=== PATIENT | male | born 1965 | race Caucasian/White ===

== ENCOUNTER → 2020-01-21 16:12 | Outpatient (BNVA) | payer BC, SELFPAY | PROVIDERS: PCP Internal Medicine; Referring Provider Internal Medicine; Visit Provider Nurse Practitioner Family | DX: Z12.11 Encounter for screening for malignant neoplasm of colon (principal); Z79.899 Other long term (current) drug therapy; Z90.49 Acquired absence of other specified parts of digestive tract ==

== ENCOUNTER 2020-02-10 06:22 | Day surgery (SDC) | payer BC, SELFPAY ==
--- NOTE | 2020-02-09 10:23 | HO.ANESPROP2 ---
Documented by User: Briana Rivero 02/09/20 10:24 HPI - Anesthesia Eval Consult details Narrative: 54yo M for Colonoscopy [facility] Past Medical History Medical History (Updated 02/09/20 @ 10:24 by Briana Rivero) RICKY on CPAP Family History Family History (Updated 01/21/20 @ 16:16 by Kirsty Dumont MA) Father Family hx of colon cancer Mother Alive and well Surgical History Surgical History (Updated 01/21/20 @ 16:33 by Rosa M White [facility]) History of thumb surgery S/P rhinoplasty Social History Social History (Updated 01/21/20 @ 16:16 by Kirsty Dumont MA) Alcohol intake: current Alcohol intake frequency: holidays/special occasions only Smoking Status: Never smoker Second Hand Smoke Exposure: No Use of substances other than those prescribed or required for medical reasons: No Advance Directives: No Advance Directives Information Provided: No Advance Directives on File: No Meds Allergies Allergy/AdvReac Type Severity Reaction Status Date / Time sertraline AdvReac Unknown FOGGY Verified 09/15/19 00:00 FEELING dust Allergy Unknown Unknown Uncoded 02/10/20 06:42 hayfever Allergy Unknown Unknown Uncoded 02/10/20 06:42 Home Medications Medication Instructions Recorded Confirmed Type cetirizine 10 mg capsule 10 mg PO DAILY 01/21/20 01/21/20 History fexofenadine 60 mg tablet 60 mg PO DAILY tab 01/21/20 01/21/20 History montelukast 10 mg tablet 10 mg PO DAILY 01/21/20 01/21/20 History Exam Exam Date and Time: February 09, 2020 1023 Assessment and Plan Assessment Anesthesia Assessment: Chart Reviewed Documented by User: Jarett Hanley 02/10/20 07:35 [facility] Past Medical History Medical History (Updated 02/09/20 @ 10:24 by Briana Rivero) RICKY on CPAP Family History Family History (Updated 01/21/20 @ 16:16 by Kirsty Dumont MA) Father Family hx of colon cancer Mother Alive and well Surgical History Surgical History (Updated 01/21/20 @ 16:33 by BENTLEY Evans) History of thumb surgery S/P rhinoplasty Social History Social History (Updated 01/21/20 @ 16:16 by Kirsty Dumont MA) Alcohol intake: current Alcohol intake frequency: holidays/special occasions only Smoking Status: Never smoker Second Hand Smoke Exposure: No Use of substances other than those prescribed or required for medical reasons: No Advance Directives: No Advance Directives Information Provided: No Advance Directives on File: No Meds Allergies Allergy/AdvReac Type Severity Reaction Status Date / Time sertraline AdvReac Unknown FOGGY Verified 09/15/19 00:00 FEELING dust Allergy Unknown Unknown Uncoded 02/10/20 06:42 hayfever Allergy Unknown Unknown Uncoded 02/10/20 06:42 Home Medications Medication Instructions Recorded Confirmed Type cetirizine 10 mg capsule 10 mg PO DAILY 01/21/20 01/21/20 History fexofenadine 60 mg tablet 60 mg PO DAILY tab 01/21/20 01/21/20 History montelukast 10 mg tablet 10 mg PO DAILY 01/21/20 01/21/20 History Exam Airway Mallampati Class: III (Limited mouth opening) TM Dist: >3cm Neck ROM: Full Heart: RRR Assessment and Plan Final Anesthetic Review NPO: Yes ASA Class: II Final Preanesthetic Review: Consent Obtained/Reviewed Anesthetic Plan Anesthetic Plan: MAC: Disposition: Standard PACU
[2020-02-09 11:50] VITALS: BMI 32.9
[2020-02-10 07:04] VITALS: BP 137/79; PULSE 72; RESP 16; TEMP 36.3; O2SAT 97
[2020-02-10] MEDS: Lactated Ringers 1,000 ML 100 ML IVCONT (07:12)
--- NOTE | 2020-02-10 07:39 | MHC.SHP ---
Pre-Procedural Eval Section B Chief Complaint: Screening Details of Present Illness: Colon cancer screening--+ hx in Father Relevant Family History (Specify if Yes): Yes Relevant Social History: None Present Medications: see Short Stay Collaborative assessment Medical History: Significant History (Obesity, RICKY, Seasonal allergies) History of Previous Operations: No relevant previous surgery Allergies: Allergies Allergy/AdvReac Type Severity Reaction Status Date / Time sertraline AdvReac Unknown FOGGY Verified 09/15/19 00:00 FEELING dust Allergy Unknown Unknown Uncoded 02/10/20 06:42 hayfever Allergy Unknown Unknown Uncoded 02/10/20 06:42 Review of Systems Sugical H&P ROS: Negative: Constitution, Cardiovascular, Respiratory and Gastrointestinal Exam Surgical H&P Exam: Normal: HEENT, Normal: Heart, Normal: Lungs and Normal: Extremities Plan Diagnosis/Plan: Unchanged Patient has been examined and remains a candidate for the planned procedure--Yes
[2020-02-10 08:07] VITALS: BP 120/79; PULSE 76; RESP 18; TEMP 36; O2SAT 94
--- NOTE | 2020-02-10 08:08 | PM.PROC ---
Brief Operative Note Date of procedure: 02/10/20 Pre-op diagnosis: Colon cancer screening + family hx Post-op diagnosis: other (Normal exam) Procedure: Colonoscopy Anesthesia: MAC (md Talon) Surgeon: Ethel Lopez Estimated blood loss (mL): 0 Pathology: none sent Condition: stable Disposition: PACU
[2020-02-10 08:22] VITALS: BP 120/83; PULSE 66; RESP 13; O2SAT 95
[2020-02-10] MEDS: Acetaminophen 325 MG TABLET 650 MG PO (08:27)
--- NOTE | 2020-02-10 08:52 | HO.POSTANES ---
Post Anesthesia Evaluation Post Anesthesia Evaluation Vital Signs: Vital Signs Temp Pulse Resp BP Pulse Ox 02/10/20 08:22 96.8 F 66 13 120/83 95 02/10/20 08:07 96.8 F 76 18 120/79 94 02/10/20 07:04 97.3 F 72 16 137/79 97 Anesthesia: Monitored Mental Status: Awake Pain Control: Satisfactory Nausea/Vomiting: None Hydration: Adequate Anesthesia-Related Issues: No Anes. Related Issues
--- NOTE | 2020-02-10 09:35 | OP_ITS ---
SURGEON: Ethel Lopez MD PREOPERATIVE DIAGNOSIS: Colon Cancer Screening POSTOPERATIVE DIAGNOSIS: Normal exam. PROCEDURE PERFORMED: Colonoscopy. ESTIMATED BLOOD LOSS: No blood loss. COMPLICATIONS: Minor epistaxis through the nasal trumpet placement. ANESTHESIA: Monitored. ANESTHESIOLOGIST: Jarett Hanley MD ASSISTANTS: No certified nursing assistant instructor. SPECIMENS: No specimens. PREOPERATIVE DIAGNOSES: The patient's first colon cancer screening, high risk, father with history of colorectal cancer greater than age 80. 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 Lopez. CONDITION: Postop, stable. FINDINGS: Digital rectal exam revealed prostate to be slightly asymmetrical and enlarged with right lobe more prominent. No nodularity appreciated. Video colonoscope was introduced without difficulty. It was navigated into the rectosigmoid, sigmoid and up through the descending, transverse, ascending colon down into the cecum. Appendiceal orifice was seen. Ileocecal valve was seen. Prep was excellent. Slow rotational views on withdrawing the scope. Good submucosal detail: noted AVM in the ascending colon, nonbleeding, less than 5 mm in size. Anorectal verge was clear. PLAN AND CURRENT RECOMMENDATIONS: Repeat asymptomatic screening in this patient with family history is 5 years. . GRAFT OR IMPLANTS: No grafts or implants. Ethel Lopez MD MEN/MODL / [id number] MTDD
== END 2020-02-10 09:00 | disposition home or self-care (01) ==
PROVIDERS: PCP Internal Medicine; Visit Provider Internal Medicine Gastroenterology
PROC: 0DJD8ZZ Inspection of Lower Intestinal Tract, Via Natural or Artificial Opening Endoscopic (ICD-10-PCS; CPT 45378; principal; 2020-02-10 07:30)
DX: Z12.11 Encounter for screening for malignant neoplasm of colon (principal); Z80.0 Family history of malignant neoplasm of digestive organs; K55.20 Angiodysplasia of colon without hemorrhage; E66.9 Obesity, unspecified; J30.2 Other seasonal allergic rhinitis; G47.33 Obstructive sleep apnea (adult) (pediatric); Z99.89 Dependence on other enabling machines and devices; Z79.899 Other long term (current) drug therapy; Z88.8 Allergy status to other drugs, medicaments and biological substances
CPT/HCPCS: 45378

== ENCOUNTER → 2020-03-03 13:40 | Outpatient (BNVA) | payer BC, SELFPAY | PROVIDERS: PCP Internal Medicine; Referring Provider Internal Medicine; Visit Provider Nurse Practitioner | DX: Z76.89 Persons encountering health services in other specified circumstances (principal) ==

== ENCOUNTER 2020-09-08 12:28 | Outpatient (REF) | payer BC, SELFPAY ==
[2020-09-08 14:00] LABS: MANUAL DIFF FLAG NO
[2020-09-08 14:08] LABS: Basophils Absolute Auto 0.1 X10*3/uL (0.0-0.2); Basophils Percent Auto 0.7 % (0-2); Eosinophils Absolute Auto 0.2 X10*3/uL (0.0-0.4); Eosinophils Percent Auto 2.1 % (0-4); Hematocrit 43.6 % (42-52); Hemoglobin 15.2 g/dl (14.0-18.0); Imm Gran Abs Auto 0.02 X10*3/uL (0.00-0.03); Imm Gran Pct Auto 0.2 % (0.0-0.4); Lymphocytes Absolute Auto 1.6 X10*3/uL (1.2-4.9); Lymphocytes Percent Auto 18.6 % (20-40); Mean Corpuscular HGB Conc 34.9 g/dl (31.0-36.0); Mean Corpuscular Hemoglobin 30.9 pg (27.0-33.0); Mean Corpuscular Volume 88.6 fL (80-98); Mean Platelet Volume 11.7 fL (9.4-12.4); Monocytes Absolute Auto 0.5 X10*3/uL (0.1-1.2); Monocytes Percent Auto 5.3 % (2-11); Neutrophils Absolute Auto 6.3 X10*3/uL (2.0-8.3); Neutrophils Percent Auto 73.1 % (45-73); Platelet Count 128 X10*3/uL (160-400); Red Blood Count 4.92 X10*6/uL (4.60-5.80); White Blood Count 8.6 X10*3/uL (4.8-10.8)
[2020-09-08 14:25] LABS: Alanine Aminotransferase 22 U/L (0-40); Albumin Level 4.3 g/dL (3.5-5.0); Alkaline Phosphatase 54 U/L (39-117); Anion Gap 13 (12-20); Aspartate Amino Transferase 21 U/L (5-37); Bilirubin Total 0.7 mg/dL (0.0-1.0); Blood Urea Nitrogen 17 mg/dL (9-16); Calcium 9.5 mg/dL (8.4-10.2); Carbon Dioxide 25 mmol/L (22-29); Chloride 107 mmol/L (96-108); Estimated Glomerular Filt Rate > 60; Glucose Random 90 mg/dL (60-115); Potassium 4.1 mmol/L (3.3-5.1); Sodium 141 mmol/L (135-145); Total Protein 6.5 g/dL (6.5-8.0)
== END 2020-09-08 12:29 | disposition home or self-care (01) ==
LOC: HO.HMGCLDS 12:28
PROVIDERS: PCP Internal Medicine; Visit Provider Internal Medicine
DX: M25.511 Pain in right shoulder (principal); M25.512 Pain in left shoulder; M25.561 Pain in right knee; M25.562 Pain in left knee; R10.13 Epigastric pain; Z91.09 Other allergy status, other than to drugs and biological substances
CPT/HCPCS: 36415; 80053; 85025

== ENCOUNTER → 2020-09-20 13:33 | Outpatient (BNVA) | payer BC, SELFPAY | PROVIDERS: Visit Provider Orthopaedic Surgery | DX: M17.0 Bilateral primary osteoarthritis of knee (principal) | CPT/HCPCS: 20610; J1040 ==

== ENCOUNTER → 2020-10-04 10:48 | Outpatient (BNVA) | payer BC, SELFPAY | PROVIDERS: Visit Provider Orthopaedic Surgery | DX: M75.41 Impingement syndrome of right shoulder (principal); M75.42 Impingement syndrome of left shoulder | CPT/HCPCS: 20610; J1040 ==

== ENCOUNTER 2021-01-22 06:55 | Outpatient (REF) | payer BC, SELFPAY ==
[2021-01-22 12:14] LABS: Prostate Specific Antigen 0.57 ng/mL (<0.05-4.0)
[2021-01-22 12:16] LABS: Appearance Urine CLEAR; Color Urine YELLOW; Glucose Urine UA NEG (NEG); Leukocyte Esterase Urine NEG (NEG); Nitrite Urine NEG (NEG); Specific Gravity - Urine <= 1.005 (1.005-1.025); Urine Blood NEG (NEG); Urine Ketones NEG (NEG); Urine Protein NEG (NEG-TRACE)
== END 2021-01-22 06:56 | disposition home or self-care (01) ==
LOC: HO.HMGCLDS 06:55
PROVIDERS: PCP Internal Medicine; Visit Provider Internal Medicine
DX: R35.0 Frequency of micturition (principal)
CPT/HCPCS: 36415; 81003; 84153

== ENCOUNTER 2021-03-13 13:55 | Outpatient (REF) | payer BC, SELFPAY ==
--- NOTE | ~2021-03-13 | XR_ITS ---
EXAMINATION: XR SHOULDER, RIGHT XR SHOULDER, LEFT CLINICAL INFORMATION: Bilateral shoulder pain. COMPARISON: None TECHNIQUE: AP external rotation, Grashey, scapular Y, and axillary views of each shoulder. FINDINGS: RIGHT SHOULDER: There is a 1.8 x 0.3 x 0.2 cm calcification at the subscapularis tendon insertion, most consistent with calcific tendinitis. Soft tissues are otherwise unremarkable. Mild glenohumeral osteoarthritis is characterized by marginal osteophytes. There is mild associated acromioclavicular osteoarthritis. No fracture or malalignment. LEFT SHOULDER: A small cluster of calcifications at the infraspinatus tendon insertion measures 5 mm in diameter. No fracture or malalignment. There is mild glenohumeral osteoarthritis with small marginal osteophytes. Additional mild acromioclavicular osteoarthritis is noted. No fracture or malalignment. Bone mineralization is normal. XR/XR shoulder RT min 2V IMPRESSION: Mild osteophytes at the acromioclavicular and glenohumeral joints bilaterally. Calcific tendinitis at the humeral insertions of the right subscapularis tendon and the left infraspinatus tendon.
--- NOTE | ~2021-03-13 | XR_ITS ---
EXAMINATION: XR SHOULDER, RIGHT XR SHOULDER, LEFT CLINICAL INFORMATION: Bilateral shoulder pain. COMPARISON: None TECHNIQUE: AP external rotation, Grashey, scapular Y, and axillary views of each shoulder. FINDINGS: RIGHT SHOULDER: There is a 1.8 x 0.3 x 0.2 cm calcification at the subscapularis tendon insertion, most consistent with calcific tendinitis. Soft tissues are otherwise unremarkable. Mild glenohumeral osteoarthritis is characterized by marginal osteophytes. There is mild associated acromioclavicular osteoarthritis. No fracture or malalignment. LEFT SHOULDER: A small cluster of calcifications at the infraspinatus tendon insertion measures 5 mm in diameter. No fracture or malalignment. There is mild glenohumeral osteoarthritis with small marginal osteophytes. Additional mild acromioclavicular osteoarthritis is noted. No fracture or malalignment. Bone mineralization is normal. XR/XR shoulder LT min 2V IMPRESSION: Mild osteophytes at the acromioclavicular and glenohumeral joints bilaterally. Calcific tendinitis at the humeral insertions of the right subscapularis tendon and the left infraspinatus tendon.
== END 2021-03-13 13:56 | disposition home or self-care (01) ==
LOC: HO.HOSX 13:55
PROVIDERS: Visit Provider Physician Assistant
DX: M75.41 Impingement syndrome of right shoulder (principal); M75.42 Impingement syndrome of left shoulder
CPT/HCPCS: 20610; 73030; J1040

== ENCOUNTER 2021-04-20 07:11 | Outpatient (REF) | payer BC, SELFPAY ==
--- NOTE | ~2021-04-20 | XR_ITS ---
EXAMINATION: CR X-RAY KNEES BILATERAL CLINICAL INFORMATION: Knee pain. COMPARISON: 10/12/2019 and the radiographs. TECHNIQUE: 3 views of the bilateral knees were obtained inclusive of bilateral standing AP views. FINDINGS: Right: Mild to moderate tricompartmental degenerative joint changes are seen most pronounced in the medial femoral-tibial compartment. There is minimal malalignment of the patella with lateral displacement. Trace suprapatellar joint effusion. The soft tissues are unremarkable. Left: Mild to moderate tricompartmental degenerative joint changes most pronounced in the lateral femoral tibial compartment. There is mild malalignment of the patella with lateral displacement. No significant joint effusion. No acute fracture. The soft tissues are unremarkable. XR/XR knee LT 2V IMPRESSION: 1. [id number] tricompartmental degenerative joint changes as detailed above most consistent with osteoarthritis. 2. Mild patellar malalignment bilaterally, left greater than right. Correlate with patellar tracking.
--- NOTE | ~2021-04-20 | XR_ITS ---
EXAMINATION: CR X-RAY KNEES BILATERAL CLINICAL INFORMATION: Knee pain. COMPARISON: 10/12/2019 and the radiographs. TECHNIQUE: 3 views of the bilateral knees were obtained inclusive of bilateral standing AP views. FINDINGS: Right: Mild to moderate tricompartmental degenerative joint changes are seen most pronounced in the medial femoral-tibial compartment. There is minimal malalignment of the patella with lateral displacement. Trace suprapatellar joint effusion. The soft tissues are unremarkable. Left: Mild to moderate tricompartmental degenerative joint changes most pronounced in the lateral femoral tibial compartment. There is mild malalignment of the patella with lateral displacement. No significant joint effusion. No acute fracture. The soft tissues are unremarkable. XR/XR knee standing BI IMPRESSION: 1. [id number] tricompartmental degenerative joint changes as detailed above most consistent with osteoarthritis. 2. Mild patellar malalignment bilaterally, left greater than right. Correlate with patellar tracking.
--- NOTE | ~2021-04-20 | XR_ITS ---
EXAMINATION: CR X-RAY KNEES BILATERAL CLINICAL INFORMATION: Knee pain. COMPARISON: 10/12/2019 and the radiographs. TECHNIQUE: 3 views of the bilateral knees were obtained inclusive of bilateral standing AP views. FINDINGS: Right: Mild to moderate tricompartmental degenerative joint changes are seen most pronounced in the medial femoral-tibial compartment. There is minimal malalignment of the patella with lateral displacement. Trace suprapatellar joint effusion. The soft tissues are unremarkable. Left: Mild to moderate tricompartmental degenerative joint changes most pronounced in the lateral femoral tibial compartment. There is mild malalignment of the patella with lateral displacement. No significant joint effusion. No acute fracture. The soft tissues are unremarkable. XR/XR knee RT 2V IMPRESSION: 1. [id number] tricompartmental degenerative joint changes as detailed above most consistent with osteoarthritis. 2. Mild patellar malalignment bilaterally, left greater than right. Correlate with patellar tracking.
== END 2021-04-20 07:12 | disposition home or self-care (01) ==
LOC: HO.HOSX 07:11
PROVIDERS: Visit Provider Physician Assistant
DX: M25.561 Pain in right knee (principal); M25.562 Pain in left knee; G47.33 Obstructive sleep apnea (adult) (pediatric); Z88.8 Allergy status to other drugs, medicaments and biological substances; J30.89 Other allergic rhinitis; J30.1 Allergic rhinitis due to pollen; Z99.89 Dependence on other enabling machines and devices
CPT/HCPCS: 20610; 73560; 73565; J1040

== ENCOUNTER → 2021-06-08 14:35 | Outpatient (BNVA) | payer BC, SELFPAY | PROVIDERS: PCP Internal Medicine; Visit Provider Urology | DX: N40.1 Benign prostatic hyperplasia with lower urinary tract symptoms (principal); R35.1 Nocturia | CPT/HCPCS: 51798 ==

== ENCOUNTER 2021-06-28 13:42 | Outpatient (REF) | payer BC, SELFPAY ==
--- NOTE | ~2021-06-28 | US_ITS ---
EXAMINATION: US PELVIS LIMITED (BLADDER) CLINICAL INFORMATION: Poor urinary stream. COMPARISON: None TECHNIQUE: Real-time imaging of the bladder. FINDINGS: BLADDER: Well distended and normal. Bilateral ureteral jets are demonstrated. Prevoid bladder volume is 413 mL. Postvoid bladder volume is 22.8 mL. PROSTATE: The prostate volume is 10 mL. US/US bladder IMPRESSION: Small postvoid residual bladder volume. Normal bilateral ureteral jets seen.
== END 2021-06-28 13:43 | disposition home or self-care (01) ==
LOC: HO.HMGCX 13:42
PROVIDERS: PCP Internal Medicine; Visit Provider Urology
DX: R39.12 Poor urinary stream (principal); R35.1 Nocturia
CPT/HCPCS: 76857

== ENCOUNTER → 2021-07-20 12:51 | Outpatient (BNVA) | payer BC, SELFPAY | PROVIDERS: PCP Internal Medicine; Visit Provider Urology | DX: N40.1 Benign prostatic hyperplasia with lower urinary tract symptoms (principal); N32.81 Overactive bladder; R35.1 Nocturia | CPT/HCPCS: 52000 ==

== ENCOUNTER → 2021-10-11 11:22 | Outpatient (BNVA) | payer BC, SELFPAY | PROVIDERS: PCP Internal Medicine; Visit Provider Physician Assistant | DX: M17.0 Bilateral primary osteoarthritis of knee (principal) | CPT/HCPCS: 20610; J1040 ==

== ENCOUNTER 2022-03-27 11:29 | Outpatient (REF) | payer BC, SELFPAY ==
[2022-03-27 13:00] LABS: Influenza A PCR NEGATIVE (Negative); Influenza B PCR NEGATIVE (Negative); Resp Syncy Virus RNA Qual PCR NEGATIVE (Negative); SARS COV2 PCR INHOUSE NEGATIVE (Negative)
== END 2022-03-27 11:30 | disposition home or self-care (01) ==
LOC: HO.LNP 11:29
PROVIDERS: Visit Provider Nurse Practitioner Family
DX: Z20.822 Contact with and (suspected) exposure to COVID-19 (principal); R68.89 Other general symptoms and signs
CPT/HCPCS: 0241U

== ENCOUNTER → 2022-04-30 09:55 | Outpatient (BNVA) | payer BC, SELFPAY | PROVIDERS: PCP Internal Medicine; Visit Provider Urology | DX: Z13.89 Encounter for screening for other disorder (principal) ==

== ENCOUNTER → 2022-09-17 12:55 | Outpatient (BNVA) | payer BC, SELFPAY | PROVIDERS: PCP Internal Medicine; Referring Provider Internal Medicine; Visit Provider Internal Medicine Cardiovascular Disease | DX: R06.09 Other forms of dyspnea (principal) | CPT/HCPCS: 93005 ==

== ENCOUNTER → 2022-10-14 07:53 | Outpatient (REF) | payer BC, SELFPAY ==
--- NOTE | 2022-10-14 08:10 | CA_ITS ---
Acquisition Time: 2022-10-14 08:57:51 Total Exercise Time: 00:08:21 Test Indications: Dyspnea Medications: FEXOFENIDINE FLONASE SINGULAIR OMEPRAZOLE TERTAZOSIN Protocol: GAYLE Max HR: 146 BPM 88% of Pred: 165 BPM Max BP: 162/080 mmHG Max Work Load: 10.1 METS Exercise stress test exercise 8 min 21 sec of Gayle protocol achieving 88% MPHR, with mild to moderate SOB, without chest discomfort, without arrhythmias, with normotensive resposne to exercise, without EKG changes. Breathing returned quickly to normal with rest. Test reviewed with Dr. Ray Referred By: Aron Ray Overread By: URI WHITFIELD
--- NOTE | 2022-10-14 08:10 | CA_ITS ---
Transthoracic Echocardiogram Patient (Last, First, Middle): Ramirez Ha J Gender: Male Date of : 1965 Age: 56 Procedure Date: 10/14/2022 Procedure Type: Transthoracic Echocardiogram Location: OP Height: 162.56 cm Weight: 81.65 kg BSA: 1.87 m2 Heart Rate: bpm BP: 122 / 70 mmHg Surveillance Inspector: Referring MD: Aron Ray MD University Internship: Aron Ray MD Symptoms: R06.09 - Other forms of dyspnea Study Quality: Fair ECG Rhythm: Sinus Conclusions: - Essentially normal study Findings Left Ventricle Normal left ventricular size, thickness, and systolic function. The visually estimated ejection fraction is between 60-65%. Spectral Doppler is indicative of a normal filling pattern. Right Ventricle Normal right ventricular cavity size and systolic function. Atria The left atrium is likely dilated. Interatrial shunt cannot be excluded. The right atrium is normal in size. Aortic Valve Normal aortic valve structure and function. There is no aortic valve stenosis. There is no aortic valve regurgitation. Mitral Valve Normal mitral valve structure and function. There is trace mitral valve regurgitation. There is no mitral valve stenosis. Pulmonic Valve The pulmonic valve is likely normal. Tricuspid Valve Normal tricuspid valve structure. There is trace tricuspid valve regurgitation. The right ventricular systolic pressure is normal. The right ventricular systolic pressure is 17 mmHg. Normal right atrial pressure. There is no evidence of pulmonary hypertension. Great Vessels All visible segments of the aorta are normal in size. The pulmonary artery was not well visualized. Venous The inferior vena cava is normal in size and collapses greater than 50% with inspiration. Pericardium/Pleural There is no evidence of pericardial effusion. Prior Study Comparison No prior study available for comparison. Measurements 2D Linear Measurements IVSd: 0.96 0.6-0.9/0.6-1.0 cm LVIDd: 4.39 3.9-5.3/4.2-5.9 cm LVIDd Index: 2.35 2.4-3.2/2.2-3.1 cm/m2 LVIDs: 2.63 2.0-3.6 cm LVPWd: 0.93 0.7-1.1 cm Ao Root: 3.20 2.1-3.5 cm LA Diam: 3.10 2.7-3.8/3.0-4.0 cm LAIDs Index: 1.66 1.5-2.3 cm/m2 LV Mass: 169.59 67-162/88-224 g LV Mass Index: 90.69 43-95/49-115 g/m2 LVOT Diam: 2.20 3.0+(-)1.3 cm 2D Systolic Function EF 4C: 66.10 >55% EF 2C: 56.30 >55% EF BiP: 61.90 >55% Mitral Valve MV Pk E: 0.85 MV PK A: 0.82 MV Decel Time: 180.00 E/A: 1.00 E'Lateral: 9.79 E'Medial: 6.53 E/E' Med: 13.10 E/E' Lat: 8.70 PHT: 53.00 MVA PHT: 4.15 Decel Pike: 4.72 Aortic Valve AoV Pk Kristopher: 1.56 AoV Mn Kristopher: 1.06 AoV VTI: 0.37 AoV Pk Grad: 10.00 Aov Mn Grad: 5.00 PAM Cont.VTI: 2.08 LVOT LVOT Pk Kristopher: 0.83 LVOT Mn Kristopher: 0.56 LVOT VTI: 0.20 LVOT Pk Grad: 3.00 LVOT Mn Grad: 1.00 LVOT Diam: 2.20 LVOT Area: 3.80 Diastolic Function MV Pk E: 0.85 MV Pk A: 0.82 E/A: 1.00 E'Medial: 6.53 E/E' Med: 13.10 E' Laterial: 9.79 E/E' Lat: 8.70 Right Ventricle TAPSE (mm): 29.00 TVS' Kristopher: 13.00 Tricuspid Valve TR Pk Kristopher: 1.85 TR Pk Grad: 14.00 RA Press: 3.00 RVSP: 17.00 Great Vessels Aorta Ao Root-2D: 3.20 2.0-3.7 cm Ao Asc: 3.30 2.1-3.4 cm Pulmonary Valve PV Pk Kristopher: 0.98 Peak PV Grad: 4.00 Updated in Other Vendor System with Status of Final Aron Ray MD electronically signed on 10/15/2022 10:07:54 AM with status of Final
== END ==
LOC: HO.CARD 07:53
PROVIDERS: PCP Internal Medicine; Visit Provider Internal Medicine Cardiovascular Disease
DX: R06.09 Other forms of dyspnea (principal)
CPT/HCPCS: 93017; 93306

== ENCOUNTER → 2022-10-14 08:10 | Outpatient (BNV) | payer BC, SELFPAY | PROVIDERS: PCP Internal Medicine; Visit Provider Internal Medicine Cardiovascular Disease | DX: R06.02 Shortness of breath (principal) | CPT/HCPCS: 93016; 93018; 93306 ==

== ENCOUNTER 2022-10-28 13:54 | Outpatient (AMB) | payer BC, SELFPAY ==
[2022-10-28 14:02] VITALS: BP 120/70; PULSE 81; BMI 32.4
--- NOTE | 2022-10-28 14:02 | MHC.OFFVIS ---
Intake Vital Signs 10/28/22 14:02 Height 5 ft 3 in Weight 182 lb 15.739 oz BMI 32.4 BP 120/70 Blood Pressure Location Lt brachial Position Sitting Pulse 81 Pulse Source Pulse Oximeter Intake Visit Reasons: f/up testing NS Intake Note: f/u after testing Allergies sertraline Adverse Reaction (Unknown, Verified 10/28/22 14:05) FOGGY FEELING dust Allergy (Unknown, Uncoded 04/30/22 09:55) Unknown hayfever Allergy (Unknown, Uncoded 04/30/22 09:55) Unknown Medication List - Last Reconciled 10/28/22 by Erma Savage, INTERNAL COMBUSTION ENGINEER-C ascorbic acid (vitamin C) 100 mg PO DAILY azelastine 2 sprays intranasal BID fexofenadine (Tracie Allergy) 60 mg PO DAILY PRN fluticasone propionate 50 mcg/actuation 1 spray intranasal DAILY montelukast (Singulair) 10 mg PO DAILY 90 days multivitamin (Daily Multi-Vitamin) 1 tab PO DAILY omeprazole 10 mg PO DAILY terazosin 5 mg PO BEDTIME HPI f/up testing NS HPI Details Ramirez is a 56-year-old male with past medical history mild obesity, obstructive sleep apnea with CPAP use, who was being evaluated for shortness of breath with activity. He recently underwent a stress test and echocardiogram and now presents for follow-up. Today he reports he has been doing well since his last visit. He has determined that his shortness of breath is mostly from sinus congestion causing him to mouth breathe which makes him feel more short of breath when doing things. He has been using Flonase and Afrin with improvement in his symptoms. He tells me he underwent a pulmonary function test a few months ago and his lungs were normal. He denies any chest discomfort at rest or with exertion. No palpitations, dizziness, presyncope, syncope, PND, orthopnea or edema. He is taking meds as directed. He reports being very active during the day which he tolerates generally well. [facility] Medical History (Updated 10/28/22 @ 15:22 by Erma Savage, YVETTE-C) Flu-like symptoms GERD (gastroesophageal reflux disease) RICKY on CPAP Primary osteoarthritis of left knee Tricompartment osteoarthritis of right knee Surgical History History of thumb surgery Hx of colonoscopy S/P rhinoplasty Family History Father Family hx of colon cancer Mother Alive and well Social History Household Members: Spouse Housing: House Are you a primary manager progressive care to a significant other at home: No Do you presently have visiting nurse or other home services: No Alcohol intake: current Alcohol intake frequency: holidays/special occasions only Patient Tobacco Use Status: Never used Tobacco e-Cigarette/Vaping Use: Never Used Second Hand Smoke Exposure: No service: No Current occupational status: employed 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 Cognitive needs: No Hearing needs: No Vision needs: No Review of Systems Const All systems reviewed & are unremarkable except as noted in HPI and below ENT Details: Nasal congestion Denies dizziness Card Denies chest pain, Denies chest pain at rest, Denies chest pain with activity, Denies rapid heart rate, Denies pedal edema, Denies edema, Denies leg edema, Denies lightheadedness, Denies palpitations, Denies dyspnea, Reports dyspnea on exertion (Which he relates to mouth breathing due to nasal congestion) and Denies orthopnea Resp Denies cough, Denies dyspnea and Reports dyspnea on exertion (Which he relates to mouth breathing due to nasal congestion) GI Denies hematochezia and Denies change in stool character Musc Denies abnormal gait, Reports limited range of motion, Reports muscle cramps, Denies muscle weakness, Denies numbness, Denies radiating pain into limb, Denies stiffness and Denies tingling Neuro Denies abnormal gait, Denies dizziness, Denies numbness and Denies tingling Endo Denies palpitations Physical Exam Vital Signs: Last Vital Signs Pulse 81 10/28/22 14:02 BP 120/70 10/28/22 14:02 BMI result Body Mass Index 32.4 Const General: cooperative, healthy appearing, comfortable and no acute distress Orientation/consciousness: patient oriented x3 Neck Neck: Yes normal visual inspection Resp Effort & Inspection: normal respiratory effort Auscultation: clear to auscultation bilaterally, no crackles, no rales, no rhonchi and no wheezes Cardio Jugular venous distension: no JVD Rate: regular rate Rhythm: regular rhythm Heart sounds: S1 normal heart sound present, S2 normal heart sound present, no gallops, no murmurs and no rubs Neuro General: patient oriented x3 Extrem General: Yes normal to inspection, No no pedal edema and No calf tenderness Psych Appearance: grossly normal Mental Status: mental status grossly normal Speech and movement: Normal speech and movement present Assessment & Plan Assessment & Plan (1) Exertional dyspnea: Code(s): R06.09 - Other forms of dyspnea Plan: Patient with initial reports of shortness of breath with activity. No cardiac history. Cardiac risks of mild obesity, sleep apnea. EKG done last visit shows sinus rhythm with no acute ST or T-wave abnormalities, rate 60. Echocardiogram done 10/14/2022 showing normal study. Exercise stress test done 10/14/2022 showing exercise 8 minutes and 21 seconds with mild to moderate shortness of breath, achieving 88% MPHR, no EKG changes of ischemia. Review test results with him. Offered option of getting coronary calcium score obtained and he declines. He reports prior PFT with normal findings. He tells me now that his symptom of shortness of breath seems to be sinus related. His symptoms have improved some with the use of Flonase and Afrin. Signs and symptoms of angina reviewed with him. Cardiology follow-up as needed. (2) RICKY on CPAP: Code(s): G47.33 - Obstructive sleep apnea (adult) (pediatric); Z99.89 - Dependence on other enabling machines and devices (3) Chronic sinusitis: Code(s): J32.9 - Chronic sinusitis, unspecified Coding Level of Care Code Est Pt Level 3 (66735) Diagnoses Exertional dyspnea R06.09 RICKY on CPAP G47.33; Z99.89 Chronic sinusitis J32.9 Time Spent (min) 20 Comment Chart review, documentation, interview, assessment
== END 2022-10-28 14:20 | disposition home or self-care (01) ==
PROVIDERS: PCP Internal Medicine; Visit Provider Nurse Practitioner Family
DX: R06.09 Other forms of dyspnea (principal); G47.33 Obstructive sleep apnea (adult) (pediatric); Z99.89 Dependence on other enabling machines and devices; J32.9 Chronic sinusitis, unspecified
CPT/HCPCS: 99213

== ENCOUNTER → 2022-10-28 13:54 | Outpatient (BNVA) | payer BC, SELFPAY | PROVIDERS: PCP Internal Medicine; Visit Provider Nurse Practitioner Family ==

== ENCOUNTER 2023-04-11 10:46 | Outpatient (AMB) | payer BC, SELFPAY ==
[2023-04-11 10:51] VITALS: BP 122/72; BMI 34.1
--- NOTE | 2023-04-11 10:51 | A.OFFPC_ITS ---
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 Required: No Accompanied by: Self / Same As Patient Allergies sertraline Adverse Reaction (Unknown, Verified 04/11/23 11:00) FOGGY FEELING dust Allergy (Unknown, Uncoded 04/30/22 09:55) Unknown hayfever Allergy (Unknown, Uncoded 04/30/22 09:55) Unknown Medication List - Last Reviewed 04/11/23 by Tru Tyler, PRITI ascorbic acid (vitamin C) 100 mg PO DAILY azelastine 2 sprays intranasal BID epinephrine IM fexofenadine (Tracie Allergy) 60 mg PO DAILY PRN fluticasone propionate 50 mcg/actuation 1 spray intranasal DAILY montelukast (Singulair) 10 mg PO DAILY 90 days multivitamin (Daily Multi-Vitamin) 1 tab PO DAILY omeprazole 10 mg PO DAILY terazosin 5 mg PO BEDTIME Tobacco use date assessed: 04/11/23 Dental Screening Dental Screen Date: 04/11/23 Did you have a dental visit in the last 12 months?: Yes Did you have a dental problem in the last 6 months where you did not have access to dental care?: No Was dental information given to patient?: Patient has dentist HPI PE HPI Details Patient is a 57-year-old gentleman came in today for physical examination He suffers from chronic allergic sinusitis , he is seeing ENT specialist now Dr. Almendarez Every time he has sinusitis see reach out to ENT now He has seen wave soldering machine operator who has recommended allergy vaccination which patient has declined Patient is seeing me every 6 months as I am prescribing allergy nasal spray and montelukast for him He ask me why he need to be seen every 6 months, explained to patient that medications have side effect and we need to monitor them if they are to continue prescribing done. Montelukast can cause depression even suicidal ideation Patient have osteoarthritis multiple joints he would like to have a referral to [facility] orthopedic for his hip pain Colonoscopy was early 2020 next 1 will be in 5 years from that date Patient have sleep apnea he is in need of new machine He does not have a sleep study, and it was like 5 years ago I have placed a new sleep study for him Follow-up in 6 months [facility] Medical History Flu-like symptoms Primary osteoarthritis of left knee GERD (gastroesophageal reflux disease) Tricompartment osteoarthritis of right knee RICKY on CPAP Surgical History Hx of colonoscopy History of thumb surgery S/P rhinoplasty Family History Father Family hx of colon cancer Mother Alive and well Social History Household Members: Spouse Housing: House Are you a primary healthcare project manager to a significant other at home: No Do you presently have visiting nurse or other home services: No Alcohol intake: current Alcohol intake frequency: holidays/special occasions only Patient Tobacco Use Status: Never used Tobacco e-Cigarette/Vaping Use: Never Used Second Hand Smoke Exposure: No service: No Current occupational status: employed 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 1. Little interest or pleasure in doing things: not at all 2. Feeling down, depressed, or hopeless: not at all 3. Trouble falling or staying asleep, or sleeping too much: not at all 4. Feeling tired or having little energy: not at all 5. Poor appetite or overeating: not at all 6. Feeling bad about yourself - or that you are a failure or have let yourself or your family down: not at all 7. Trouble concentrating on things, such as reading the newspaper or watching television: not at all 8. Moving or speaking so slowly that other people could have noticed. Or the opposite - being so fidgety or restless that you have been moving around a lot more than usual: not at all 9. Thoughts that you would be better off or of hurting yourself in some way: not at all Total score: 0 Depression Screening Interpretation: Negative Depression Screening Done: Yes 90839 - PHQ-9 Billing: Yes Source: Developed by Drs. Vicente Post, Chantell B.W. Christiano Lopez and colleagues, with an educational ian from [employer]. Thrive Questionnaire Date Thrive assessed: 04/11/23 I am a: Patient What is your living situation today?: I have a steady place to live Within the past 12 months, did the food you bought not last and you didn't have the money to get more?: Never true Within the past 12 months, did you worry whether your food would run out before you got money to buy more?: Never true Do you have trouble paying for medicines?: No Do you have trouble getting transportation to medical appointments?: No Do you have trouble paying your heating and electricity bill?: No Do you have trouble taking care of your child, family member or friend?: No Do you have trouble with day-to-day activities such as bathing, preparing meals, shopping, managing finances, etc.?: No Are you currently unemployed and looking for a job?: No Are you interested in more education?: No Please select the resources that you would like help with: None Currently or been in a relationship where the following occur: no concerns reported THRIVE Score: 0 PATRICE-7 AMB Questionnaire PATRICE-7 Date PATRICE - 7 assessed: 04/11/23 Feeling nervous, anxious, or on edge: 0 = Not at all Not being able to stop or control worryin = Not at all Worrying too much about different things: 0 = Not at all Trouble relaxin = Not at all Being so restless that it is hard to sit still: 0 = Not at all Becoming easily annoyed or irritable: 0 = Not at all Feeling afraid as if something awful might happen: 0 = Not at all Total PATRICE-7 score (0-4 normal; 5-9 mild; 10-14 moderate; 15-21 severe): 0 Source: Developed by Drs. Vicente Post, Christiano Watts and colleagues, with an educational ian from [employer]. PATRICE-7 Assessment Billing PATRICE-7 Assessment Tool: PATRICE-7 Assessment 56820 Review of Systems Const Denies chills, Denies fever(s) and Denies headache(s) Eyes Denies blurry vision ENT Denies headache(s), Denies nasal discharge, Denies nasal obstruction, Denies odynophagia and Denies sinus pain Card Denies chest pain at rest and Denies chest pain with activity Resp Denies cough and Denies hemoptysis GI Denies diarrhea, Denies odynophagia, Denies vomiting and Denies hematemesis Reports as per HPI Musc Denies abnormal gait Skin/Breast Reports as per HPI Neuro Denies Neuro-related abnormal movements, Denies Abnormal speech present, Denies abnormal gait, Denies headache(s) and Denies Sensory deficit (Neuro) Psych Denies mood swings and Denies paranoia Endo Reports as per HPI Fletcher/Lymph Reports as per HPI Aller/Immun Reports as per HPI Physical exam (Primary Care) Vital Signs: Last Vital Signs BP 122/72 04/11/23 10:51 BMI result Body Mass Index 34.1 Tobacco/Smoking Status: Tobacco use Status Tobacco use date assessed 04/11/23 04/11/23 11:02 Patient Tobacco Use Status Never used Tobacco 04/11/23 10:51 e-Cigarette/Vaping Use Never Used 04/11/23 10:51 PHQ-9: PHQ-9 Score PHQ-9: Total score 0 04/11/23 11:02 Depression Screening Interpretation: Negative Thrive Assessment: Date of Thrive Assessment Date Thrive assessed 04/11/23 04/11/23 11:02 Currently or been in a relationship where the following occur: no concerns reported Const General: cooperative, comfortable and no acute distress Orientation/consciousness: patient oriented x3 HENMT Head: Yes normocephalic and Yes atraumatic Eyes General: appearance normal, both eyes and all related structures Pupils: Equal, round and reactive pupils present EOM: EOMs intact bilaterally Neck Neck: Yes supple and No lymphadenopathy Thyroid: Thyroid normal Lymphatic: no lymphadenopathy noted Resp Effort & Inspection: normal respiratory effort and able to speak in complete sentences Auscultation: clear to auscultation bilaterally Cardio Heart sounds: S1 normal heart sound present and S2 normal heart sound present GI Palpation (GI): Soft to palpation and nontender Auscultation: normal bowel sounds General: Yes no CVA tenderness Back/Spine/Pelvis Back: no CVA tenderness Skin General skin exam: elasticity normal and turgor normal Neuro General: patient oriented x3 and gait normal Cranial nerves: Yes Equal, round and reactive pupils present Speech: No Abnormal speech present Sensory Exam: No Sensory deficit (Neuro) Coordination: tandem gait normal and Romberg test negative Extrem General: Yes normal exam except as noted and No edema Assessment and Plan Assessment & Plan (1) Encounter for general adult medical examination with abnormal findings: Code(s): Z00.01 - Encounter for general adult medical examination with abnormal findings (2) Obesity due to excess calories: Code(s): E66.09 - Other obesity due to excess calories Qualifiers: Obesity classification: adult class 1 (BMI 30 - 34.9) Serious obesity comorbidity presence: without serious comorbidity Body mass index: BMI 34.0- 34.9 Qualified Code(s): E66.09 - Other obesity due to excess calories; Z68.34 - Body mass index [BMI] 34.0-34.9, adult (3) Dyspepsia: Code(s): R10.13 - Epigastric pain (4) Environmental allergies: Code(s): Z91.09 - Other allergy status, other than to drugs and biological substances (5) Allergic rhinitis: Code(s): J30.9 - Allergic rhinitis, unspecified Qualifiers: Allergic rhinitis seasonality: unspecified Allergic rhinitis trigger: other Qualified Code(s): J30.89 - Other allergic rhinitis (6) Thrombocytopenia: Code(s): D69.6 - Thrombocytopenia, unspecified (7) Osteoarthritis of knees, bilateral: Code(s): M17.0 - Bilateral primary osteoarthritis of knee Qualifiers: Osteoarthritis type: primary Qualified Code(s): M17.0 - Bilateral prima ry osteoarthritis of knee (8) RICKY on CPAP: Code(s): G47.33 - Obstructive sleep apnea (adult) (pediatric); Z99.89 - Dependence on other enabling machines and devices (9) Osteoarthritis, hip, bilateral: Code(s): M16.0 - Bilateral primary osteoarthritis of hip Qualifiers: Osteoarthritis type: primary Qualified Code(s): M16.0 - Bilateral primary osteoarthritis of hip Plan Patient is a 57-year-old gentleman came in today for physical examination He suffers from chronic allergic sinusitis , he is seeing ENT specialist now Dr. Almendarez Every time he has sinusitis see reach out to ENT now He has seen wave soldering machine operator who has recommended allergy vaccination which patient has declined Patient is seeing me every 6 months as I am prescribing allergy nasal spray and montelukast for him He ask me why he need to be seen every 6 months, explained to patient that medications have side effect and we need to monitor them if they are to continue prescribing done. Montelukast can cause depression even suicidal ideation Patient have osteoarthritis multiple joints he would like to have a referral to [facility] orthopedic for his hip pain Colonoscopy was early 2020 next 1 will be in 5 years from that date Patient have sleep apnea he is in need of new machine He does not have a sleep study, and it was like 5 years ago I have placed a new sleep study for him Follow-up in 6 months Orders: Orders Complete Blood Count Auto Diff Today D69.6 - Thrombocytopenia, unspecified, G47.33 - Obstructive sleep apnea (adult) (pediatric), J30.9 - Allergic rhinitis, unspecified, M17.0 - Bilateral primary osteoarthritis of knee, Z00.01 - Encounter for general adult medical examination with abnormal findings, Z99.89 - Dependence on other enabling machines and devices Comprehensive Met. Panel Today D69.6 - Thrombocytopenia, unspecified, G47.33 - Obstructive sleep apnea (adult) (pediatric), J30.9 - Allergic rhinitis, unspecified, M17.0 - Bilateral primary osteoarthritis of knee, Z00.01 - Encounter for general adult medical examination with abnormal findings, Z99.89 - Dependence on other enabling machines and devices LDL Cholesterol Direct Today D69.6 - Thrombocytopenia, unspecified, G47.33 - Obstructive sleep apnea (adult) (pediatric), J30.9 - Allergic rhinitis, unspecified, M17.0 - Bilateral primary osteoarthritis of knee, Z00.01 - Encounter for general adult medical examination with abnormal findings, Z99.89 - Dependence on other enabling machines and devices RT PSG in-lab sleep titration Today G47.33 - Obstructive sleep apnea (adult) (pediatric), Z99.89 - Dependence on other enabling machines and devices Referrals Orthopedics Referral M16.0 - Bilateral primary osteoarthritis of hip Coding Level of Care Code Est Pt Prev Care 40-64y(06466) Diagnoses Encounter for general adult medical examination with abnormal findings Z00.01 Class 1 obesity due to excess calories without serious comorbidity with body mass index (BMI) of 34.0 to 34.9 in adult E66.09; Z68.34 Obesity classification: adult class 1 (BMI 30 - 34.9) Serious obesity comorbidity presence: without serious comorbidity Body mass index: BMI 34.0-34.9 Dyspepsia R10.13 Environmental allergies Z91.09 Allergic rhinitis due to other allergic trigger, unspecified seasonality J30.89 Allergic rhinitis seasonality: unspecified Allergic rhinitis trigger: other Thrombocytopenia D69.6 Primary osteoarthritis of both knees M17.0 Osteoarthritis type: primary RICKY on CPAP G47.33; Z99.89 Primary osteoarthritis of both hips M16.0 Osteoarthritis type: primary Additional Codes PATRICE-7 Assessment Billing - PATRICE-7 Assessment Tool: PATRICE-7 Assessment [id number] ([id number])
== END 2023-04-11 11:22 | disposition home or self-care (01) ==
PROVIDERS: Visit Provider Internal Medicine
DX: Z00.00 Encounter for general adult medical examination without abnormal findings (principal); D69.6 Thrombocytopenia, unspecified; E66.09 Other obesity due to excess calories; Z68.34 Body mass index [BMI] 34.0-34.9, adult; R10.13 Epigastric pain; Z91.09 Other allergy status, other than to drugs and biological substances; J30.89 Other allergic rhinitis; M17.0 Bilateral primary osteoarthritis of knee; G47.33 Obstructive sleep apnea (adult) (pediatric); Z99.89 Dependence on other enabling machines and devices; M16.0 Bilateral primary osteoarthritis of hip
CPT/HCPCS: 99396

== ENCOUNTER 2023-04-11 11:24 | Outpatient (REF) | payer BC, SELFPAY ==
[2023-04-11 13:31] LABS: MANUAL DIFF FLAG NO
[2023-04-11 13:47] LABS: Basophils Absolute Auto 0.1 X10*3/uL (0.0-0.2); Basophils Percent Auto 0.7 % (0-2); Eosinophils Absolute Auto 0.3 X10*3/uL (0.0-0.4); Eosinophils Percent Auto 4.2 % (0-4); Hematocrit 44.9 % (42.0-52.0); Hemoglobin 15.8 g/dl (14.0-18.0); Imm Gran Abs Auto 0.04 X10*3/uL (0.00-0.03); Imm Gran Pct Auto 0.5 % (0.0-0.4); Lymphocytes Absolute Auto 1.4 X10*3/uL (1.2-4.9); Lymphocytes Percent Auto 18.6 % (20-40); Mean Corpuscular HGB Conc 35.2 g/dl (31.0-36.0); Mean Corpuscular Hemoglobin 31.1 pg (27.0-33.0); Mean Corpuscular Volume 88.4 fL (80.0-98.0); Mean Platelet Volume 10.7 fL (9.4-12.4); Monocytes Absolute Auto 0.6 X10*3/uL (0.1-1.2); Monocytes Percent Auto 7.3 % (2-11); Neutrophils Absolute Auto 5.2 x10*3/uL (2.0-8.3); Neutrophils Percent Auto 68.7 % (45-73); Platelet Count 142 X10*3/uL (160-400); Red Blood Count 5.08 X10*6/uL (4.60-5.80); Red Cell Distribution Width 11.9 % (11.0-16.0); White Blood Count 7.5 X10*3/uL (4.8-10.8)
[2023-04-11 14:49] LABS: Alanine Aminotransferase 29 U/L (0-40); Albumin Level 4.4 g/dL (3.5-5.0); Alkaline Phosphatase 59 U/L (39-117); Anion Gap 12 (12-20); Aspartate Amino Transferase 20 U/L (5-37); Bilirubin Total 0.4 mg/dL (0.0-1.0); Blood Urea Nitrogen 18 mg/dL (9-16); Calcium 9.5 mg/dL (8.4-10.2); Carbon Dioxide 26 mmol/L (22-29); Chloride 105 mmol/L (96-108); Estimated Glomerular Filt Rate > 60; Glucose Random 92 mg/dL (60-115); Potassium 4.2 mmol/L (3.3-5.1); Sodium 139 mmol/L (135-145); Total Protein 7.2 g/dL (6.5-8.0)
[2023-04-12 16:58] LABS: LDL Cholesterol Direct 104 mg/dL (<100)
== END 2023-04-11 11:25 | disposition home or self-care (01) ==
LOC: HO.HMGCLDS 11:24
PROVIDERS: PCP Internal Medicine; Visit Provider Internal Medicine
DX: Z00.01 Encounter for general adult medical examination with abnormal findings (principal); D69.6 Thrombocytopenia, unspecified; J30.9 Allergic rhinitis, unspecified; M17.0 Bilateral primary osteoarthritis of knee; G47.33 Obstructive sleep apnea (adult) (pediatric); Z99.89 Dependence on other enabling machines and devices
CPT/HCPCS: 36415; 80053; 83721; 85025

== ENCOUNTER 2023-04-30 15:32 | Outpatient (AMB) | payer BC, SELFPAY ==
--- NOTE | 2023-04-30 16:26 | A.OFFVIS_ITS ---
Intake Intake Visit Reasons: 1yr follow up/PVR Intake Note: Patient presents today for a yearly follow-up Meds- Terazosin Allergies to Antibiotic- No Known Allergies Blood Thinner- None Post Void Residual: 27 Patient Symptoms: None Allergies sertraline Adverse Reaction (Unknown, Verified 04/30/23 16:36) FOGGY FEELING dust Allergy (Unknown, Uncoded 04/30/23 16:36) Unknown hayfever Allergy (Unknown, Uncoded 04/30/23 16:36) Unknown HPI HPI Comments History of Present Illness Details Ramirez is a pleasant male. He is a patient of Dr. Farias. He is seen for the following urologic conditions - lower urinary tract symptoms - irritative bladder symptoms PVR 30 cc Happy with terazosin Bladder will be disturbed when has bladder stimulants Twelve month follow-up Inflamed trigone Improved with 3 months trimethoprim Lower urinary tract symptoms Progressive past number of years since late 40s Has urgency and frequency with nocturia x2 Background of sleep apnea Drinks 1-2 coffees per day Discussed bladder triggers PSA 02/11 0.6 Current medications include tamsulosin Bladder ultrasound - normal with trabeculations on cystoscopy PFSH Medical History Flu-like symptoms Primary osteoarthritis of left knee GERD (gastroesophageal reflux disease) Tricompartment osteoarthritis of right knee RICKY on CPAP Surgical History Hx of colonoscopy History of thumb surgery S/P rhinoplasty Family History Father Family hx of colon cancer Mother Alive and well Social History Household Members: Spouse Housing: House Are you a primary acute care surgeon to a significant other at home: No Do you presently have visiting nurse or other home services: No Alcohol intake: current Alcohol intake frequency: holidays/special occasions only Patient Tobacco Use Status: Never used Tobacco e-Cigarette/Vaping Use: Never Used Second Hand Smoke Exposure: No service: No Current occupational status: employed 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 Cognitive needs: No Hearing needs: No Vision needs: No Review of Systems Const Denies chills and Denies fever(s) Card Reports no additional complaints and Denies syncope Resp Denies cough GI Denies abdominal pain and Denies heartburn Reports as per HPI and Denies change in libido Neuro Denies syncope Psych Denies change in libido Endo Denies change in libido Physical Exam Const General: cooperative, healthy appearing, comfortable and no acute distress Orientation/consciousness: patient oriented x3 HEENT Face and sinus: Yes normal facial exam Mouth: moist mucous membranes Neck Neck: Yes normal visual inspection, Yes full ROM and Yes trachea midline Chest Chest palpation & inspection: normal inspection of the chest Resp Effort & Inspection: normal respiratory effort, able to speak in complete sentences and no respiratory distress GI Inspection: Yes normal to inspection Back/Spine/Pelvis Cervical Spine: normal cervical lordosis Thoracic/Lumbar Spine: thoracic and lumbar spine normal to inspection Skin General skin exam: no rashes or lesions noted Neuro General: patient oriented x3, gait normal, tone normal and moves all extremities Extrem General: Yes normal to inspection and Yes capillary refill normal Office Procedures Post Void Residual Post Residual Void Post Void Residual (PVR): 27 [id number] Void Residual by ultrasound Assessment & Plan Assessment & Plan (1) Overactive bladder: Code(s): N32.81 - Overactive bladder (2) Nocturia more than twice per night: Code(s): R35.1 - Nocturia Plan Twelve month follow-up Orders: Orders AMB Post Void Residual by ultrasound Today R33.9 - Retention of urine, unspecified Prostate Specific Antigen 364 Days N40.1 - Benign prostatic hyperplasia with lower urinary tract symptoms Patient Instructions: Imaging studies, laboratory and physical exam results were discussed and reviewed in detail. No major barriers to patient understanding were identified. An opportunity to ask questions regarding the treatment plan was provided. All questions were answered. The patient expressed understanding and agreement with the above treatment plan. The patient is aware they should contact our office by phone for worsening of their current condition or the appearance of new urologic symptoms. Compliance is encouraged with any medications and followup testing that is ordered. It is a privilege to participate in the urologic care of your patient. If you have any questions or concerns regarding treatment for the above conditions, or other urologic issues, please do not hesitate to contact me. The office telephone contact is [phone]. This note is constructed using voice recognition software. While every effort has been made to ensure accuracy refinery pipeline operator errors may have been included. Yours sincerely, Dr Logan Hsu MD, [facility] - Urology Providers of Expert, Compassionate Care for the Genitourinary System Coding Level of Care Code Est Pt Level 4 (23151) Diagnoses Overactive bladder N32.81 Nocturia more than twice per night R35.1 CPT Codes Post Residual Void - PVR CPT Code: 25877-Ztyg Void Residual by ultrasound ( [id number])
== END 2023-04-30 16:55 | disposition home or self-care (01) ==
PROVIDERS: Visit Provider Urology
DX: N32.81 Overactive bladder (principal); R35.1 Nocturia
CPT/HCPCS: 99213

== ENCOUNTER → 2023-04-30 15:32 | Outpatient (BNVA) | payer BC, SELFPAY | PROVIDERS: Visit Provider Urology | DX: N32.81 Overactive bladder (principal); R35.1 Nocturia; R33.9 Retention of urine, unspecified | CPT/HCPCS: 51798 ==

== ENCOUNTER 2023-06-06 08:02 | Outpatient (AMB) | payer BC, SELFPAY ==
--- NOTE | 2023-06-06 08:13 | AM.OFFWIN_ITS ---
Intake Vital Signs 06/06/23 08:14 Height 5 ft 3 in Weight 192 lb BMI 34.0 BP 130/74 Blood Pressure Location Lt brachial Position Sitting Pulse 57 Pulse Source Pulse Oximeter Temp 98.3 F Temp Source Oral Pulse Oximetry (%) 98 Oxygen Delivery Method Room Air Intake Visit Reasons: EP sinus infection (lobby) Patient Tobacco Use Status: Never used Tobacco Allergies sertraline Adverse Reaction (Unknown, Verified 06/06/23 08:16) FOGGY FEELING dust Allergy (Unknown, Uncoded 04/30/23 16:36) Unknown hayfever Allergy (Unknown, Uncoded 04/30/23 16:36) Unknown Medication List - Last Reconciled 06/06/23 by Lolis Farias MD ascorbic acid (vitamin C) 100 mg PO DAILY azelastine 2 sprays intranasal BID epinephrine IM fexofenadine (Tracie Allergy) 60 mg PO DAILY PRN fluticasone propionate 50 mcg/actuation 1 spray intranasal DAILY montelukast (Singulair) 10 mg PO DAILY 90 days multivitamin (Daily Multi-Vitamin) 1 tab PO DAILY omeprazole 10 mg PO DAILY terazosin 5 mg PO BEDTIME Do you need a note to return to daycare/school/sports/work: No HPI EP sinus infection (lobby) HPI Details Patient is a 57-year-old gentleman came in today to be evaluated for sinus infection Patient gets sinus infection recurrently, which present with facial pressure headache around his eyes and nasal congestion He is established with ENT specialist as well, he could not get hold of them so he came in here Usually when that happens patient get Augmentin and 5 mg of prednisone for a week Review system: There is no fever no chills he is feeling off balance because of inflammation in his ears, there is no nausea vomiting There is no abdominal pain no chest pain no shortness a breath Plan: I have sent Augmentin and 5 mg of prednisone for him He is to follow up with his ENT specialist [facility] Medical History Flu-like symptoms Primary osteoarthritis of left knee GERD (gastroesophageal reflux disease) Tricompartment osteoarthritis of right knee RICKY on CPAP Surgical History Hx of colonoscopy History of thumb surgery S/P rhinoplasty Family History Father Family hx of colon cancer Mother Alive and well Social History Household Members: Spouse Housing: House Are you a primary manager medicare to a significant other at home: No Do you presently have visiting nurse or other home services: No Alcohol intake: current Alcohol intake frequency: holidays/special occasions only Patient Tobacco Use Status: Never used Tobacco e-Cigarette/Vaping Use: Never Used Second Hand Smoke Exposure: No service: No Current occupational status: employed 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 Cognitive needs: No Hearing needs: No Vision needs: No Review of Systems Const All systems reviewed & are unremarkable except as noted in HPI and below Physical Exam Vital Signs: Last Vital Signs Temp 98.3 F 06/06/23 08:14 Pulse 57 06/06/23 08:14 BP 130/74 06/06/23 08:14 Pulse Ox 98 06/06/23 08:14 Oxygen Delivery Method Room Air 06/06/23 08:14 BMI result Body Mass Index 34.0 Const General: no acute distress Orientation/consciousness: patient oriented x3 HEENT Other: Discomfort with pressure over maxillary sinuses, nasal congestion present Eyes General: appearance normal, both eyes and all related structures Resp Effort & Inspection: normal respiratory effort and able to speak in complete sentences Auscultation: clear to auscultation bilaterally Cardio Other: S1 S2 Neuro General: patient oriented x3 Psych Mental Status: mental status grossly normal Assessment & Plan Assessment & Plan (1) Sinusitis, acute maxillary: Code(s): J01.00 - Acute maxillary sinusitis, unspecified Qualifiers: Recurrence: recurrent Qualified Code(s): J01.01 - Acute recurrent maxillary sinusitis Plan Patient is a 57-year-old gentleman came in today to be evaluated for sinus infection Patient gets sinus infection recurrently, which present with facial pressure headache around his eyes and nasal congestion He is established with ENT specialist as well, he could not get hold of them so he came in here Usually when that happens patient get Augmentin and 5 mg of prednisone for a week Review system: There is no fever no chills he is feeling off balance because of inflammation in his ears, there is no nausea vomiting There is no abdominal pain no chest pain no shortness a breath Plan: I have sent Augmentin and 5 mg of prednisone for him He is to follow up with his ENT specialist Medications: New amoxicillin-pot clavulanate 875-125 mg 1 tab PO BID 10 days 20 tabs 0RF prednisone 5 mg PO DAILY 7 days 7 tabs 0RF Coding Level of Care Code Est Pt Level 3 (99197) Diagnoses Acute recurrent maxillary sinusitis J01.01 Recurrence: recurrent
[2023-06-06 08:14] VITALS: BP 130/74; PULSE 57; TEMP 36.8; O2SAT 98; BMI 34.0
== END 2023-06-06 08:50 | disposition home or self-care (01) ==
PROVIDERS: PCP Internal Medicine; Visit Provider Internal Medicine
DX: J01.01 Acute recurrent maxillary sinusitis (principal)
CPT/HCPCS: 99213

== ENCOUNTER 2023-06-17 11:30 | Outpatient (REF) | payer BC, SELFPAY ==
--- NOTE | ~2023-06-17 | XR_ITS ---
EXAMINATION: XR HIP, RIGHT XR HIP, LEFT CLINICAL INDICATION: Pain, unspecified hip. TECHNIQUE: AP view of the pelvis. AP and frog-lateral views of each hip. COMPARISON: None available. FINDINGS: Degenerative changes in the imaged lower lumbar spine. Mild degenerative changes in the bilateral sacroiliac joints. Small rounded pelvic calcifications are likely vascular. RIGHT HIP: Mild narrowing of the right hip joint with degenerative changes. Small calcifications in the soft tissues adjacent to the greater trochanter. LEFT HIP: Mild narrowing of the left hip joint space with mild hypertrophic change. Small calcifications in the soft tissues adjacent to the greater trochanter. XR/XR hip LT min 2V IMPRESSION: Mild degenerative changes in the bilateral hips.
--- NOTE | ~2023-06-17 | XR_ITS ---
EXAMINATION: XR HIP, RIGHT XR HIP, LEFT CLINICAL INDICATION: Pain, unspecified hip. TECHNIQUE: AP view of the pelvis. AP and frog-lateral views of each hip. COMPARISON: None available. FINDINGS: Degenerative changes in the imaged lower lumbar spine. Mild degenerative changes in the bilateral sacroiliac joints. Small rounded pelvic calcifications are likely vascular. RIGHT HIP: Mild narrowing of the right hip joint with degenerative changes. Small calcifications in the soft tissues adjacent to the greater trochanter. LEFT HIP: Mild narrowing of the left hip joint space with mild hypertrophic change. Small calcifications in the soft tissues adjacent to the greater trochanter. XR/XR hip RT min 2V IMPRESSION: Mild degenerative changes in the bilateral hips.
== END 2023-06-17 11:31 | disposition home or self-care (01) ==
LOC: HO.HOSX 11:30
PROVIDERS: Visit Provider Physician Assistant
DX: M16.0 Bilateral primary osteoarthritis of hip (principal); M21.951 Unspecified acquired deformity of right thigh
CPT/HCPCS: 73502

== ENCOUNTER 2023-06-17 13:34 | Outpatient (AMB) | payer BC, SELFPAY ==
--- NOTE | 2023-06-17 13:35 | MHC.OFFVIS ---
Intake Vital Signs 06/17/23 14:04 Height 5 ft 3 in Weight 192 lb BMI 34.0 Intake Visit Reasons: New Prob - B/L hip pain Intake Note: Ramirez is a 57 year old male who presents today for a evaluation of his bilateral hip pain. No hx of Injury. Patient reports ongoing pain for a year and he feels that it is getting worse. He states that his pain begins from his glutes and it moves to the side of his hip. Pain is worse on the left hip than the right. Pain is worse when he has to pivot a certain way. Currently, having discomfort on both hips but the left hip is a bit worse. He finds mild relief when using the theragun. Allergies sertraline Adverse Reaction (Unknown, Verified 06/06/23 08:16) FOGGY FEELING dust Allergy (Unknown, Uncoded 04/30/23 16:36) Unknown hayfever Allergy (Unknown, Uncoded 04/30/23 16:36) Unknown HPI New Prob - B/L hip pain HPI Details 57-year-old male who presents in the office today for an evaluation of bilateral hip pain. I last saw the patient in the office in 10/11/2021 with a complaint of bilateral knee pain for which he received cortisone injections. While in the office today the patient denies a history of injury to the bilateral hips. He reports ongoing pain and discomfort for many years with an increase in symptoms. He claims the pain begins in the glutes and radiates to his hips. He states his pain and discomfort is greater on the left hip then the right hip. He reports increased pain with pivoting certain directions. Patient does find mild relief with the use of a Theragun. [facility] Medical History Flu-like symptoms Primary osteoarthritis of left knee GERD (gastroesophageal reflux disease) Tricompartment osteoarthritis of right knee RICKY on CPAP Surgical History Hx of colonoscopy History of thumb surgery S/P rhinoplasty Family History Father Family hx of colon cancer Mother Alive and well Social History Household Members: Spouse Housing: House Are you a primary congregational care pastor to a significant other at home: No Do you presently have visiting nurse or other home services: No Alcohol intake: current Alcohol intake frequency: holidays/special occasions only Patient Tobacco Use Status: Never used Tobacco e-Cigarette/Vaping Use: Never Used Second Hand Smoke Exposure: No service: No Current occupational status: employed 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 No ecchymosis, erythema, or edema. Full hip ROM in all planes. No tenderness to palpation over the greater trochanteric bursa. Denies groin pain with internal and external rotation. 4/5 strength with resisted hip flexion, knee extension, abduction, and abduction. Positive straight leg raise on the left lower extremity. NVI. Assessment & Plan Assessment & Plan (1) Osteoarthritis, hip, bilateral: Code(s): M16.0 - Bilateral primary osteoarthritis of hip Qualifiers: Osteoarthritis type: primary Qualified Code(s): M16.0 - Bilateral primary osteoarthritis of hip (2) Deformity of right hip joint: Comment: Mild pistol deformity Code(s): M21.951 - Unspecified acquired deformity of right thigh Plan Mr. Ha is a 57-year-old male who presents in the office today for an evaluation of bilateral hip pain. I last saw the patient in the office in 10/11/2021 with a complaint of bilateral knee pain for which he received cortisone injections. While in the office today the patient denies a history of injury to the bilateral hips. He reports ongoing pain and discomfort for many years with an increase in symptoms. He claims the pain begins in the glutes and radiates to his hips. He states his pain and discomfort is greater on the left hip then the right hip. He reports increased pain with pivoting certain directions. Patient does find mild relief with the use of a Theragun. Patient denies any groin pain at this time with physical exam or during day to day activities. He reports that his pain is more located across the lower back and wraps around to the lateral aspect of the bilateral hips at the area of the greater trochanteric bursa on palpation of the bursa and on exam. I suspect lower back pathology that is contributing to his pain. I would like for the patient to be evaluated by Physiatry for further treatment. Should Physiatry not find any pathology in regards to his lower back I would like to see him back for further investigation of the bilateral hips. X-rays of the bilateral hips which were obtained while in the office today and were reviewed by me, Lou Patel PA-C, revealed negative for any acute fractures or dislocation. Right hip with mild pistol deformity. Patient Instructions: Scribed by Rosaura Thomas, medical record administrator, for Lou Patel PA-C on 06/17/2023 at 2:08 pm, EST. Coding Level of Care Code Est Pt Level 3 (51488) Diagnoses Primary osteoarthritis of both hips M16.0 Osteoarthritis type: primary Deformity of right hip joint M21.951
[2023-06-17 14:04] VITALS: BMI 34.0
== END 2023-06-17 14:55 | disposition home or self-care (01) ==
PROVIDERS: PCP Internal Medicine; Visit Provider Physician Assistant
DX: M16.0 Bilateral primary osteoarthritis of hip (principal); M21.951 Unspecified acquired deformity of right thigh
CPT/HCPCS: 99213

== ENCOUNTER → 2023-06-27 20:30 | Outpatient (REF) | payer BC, SELFPAY | LOC: HO.SL 20:30 | PROVIDERS: PCP Internal Medicine; Visit Provider Internal Medicine | DX: Z13.89 Encounter for screening for other disorder (principal) ==

== ENCOUNTER 2023-07-24 09:21 | Outpatient (REF) | payer BC, SELFPAY | END 2023-07-24 09:22 | disposition home or self-care (01) | LOC: HO.HOSX 09:21 | PROVIDERS: Visit Provider Physical Medicine & Rehabilitation | DX: Z13.89 Encounter for screening for other disorder (principal) ==

== ENCOUNTER 2023-08-11 09:00 | Outpatient (AMB) | payer BC, SELFPAY ==
[2023-08-11 09:01] VITALS: BP 132/68; PULSE 85; TEMP 36.6; O2SAT 96; BMI 33.7
--- NOTE | 2023-08-11 09:01 | AM.OFFWIN_ITS ---
Intake Vital Signs 08/11/23 09:01 Height 5 ft 3 in Weight 190 lb 8 oz BMI 33.7 BP 132/68 Blood Pressure Location Rt brachial Position Sitting Pulse 85 Pulse Source Pulse Oximeter Temp 97.8 F Temp Source Oral Pulse Oximetry (%) 96 Oxygen Delivery Method Room Air Intake Visit Reasons: Est/sinus pressure (lobby) Intake Note: pt is here today for sinus pressure started Friday. Pt states symptoms are fatigue, joint pain and headaches. Patient Tobacco Use Status: Never used Tobacco Allergies sertraline Adverse Reaction (Unknown, Verified 08/11/23 09:03) FOGGY FEELING dust Allergy (Unknown, Uncoded 04/30/23 16:36) Unknown hayfever Allergy (Unknown, Uncoded 04/30/23 16:36) Unknown Do you need a note to return to daycare/school/sports/work: No HPI HPI Comments History of Present Illness Details Patient presents to the walk in for 1 week sinus pressure, headaches, f atigue and bodyaches Reports hx sinusitis, always feel like this Started with URI symptoms but now states has turned into a sinus infection Denies facial tenderness, never have that with sinus infections Denies fever, chest pain, shortness of breath, palpitations, syncope, weakness Has ENT but not able to get an appt with them PFSH Medical History Flu-like symptoms Primary osteoarthritis of left knee GERD (gastroesophageal reflux disease) Tricompartment osteoarthritis of right knee RICKY on CPAP Surgical History Hx of colonoscopy History of thumb surgery S/P rhinoplasty Family History Father Family hx of colon cancer Mother Alive and well Social History Household Members: Spouse Housing: House Are you a primary director of home care hospice to a significant other at home: No Do you presently have visiting nurse or other home services: No Alcohol intake: current Alcohol intake frequency: holidays/special occasions only Patient Tobacco Use Status: Never used Tobacco e-Cigarette/Vaping Use: Never Used Second Hand Smoke Exposure: No service: No Current occupational status: employed 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 Answers questions appropriately. Fully engaged in examination. Skin: warm, dry, intact HEENT: TMs intact bilaterally, without redness. Posterior pharynx without erythema or exudate. Sclera without icterus or injection. Cardiac: External chest normal in appearance. Respiratory: LSCTAB. Abdomen: without gross distension. Neurological: Oriented to person, place, time and situation. Thought process intact. Psychiatric: Appropriate mood and affect. Good judgment and insight. Assessment & Plan Assessment & Plan (1) Acute sinusitis: Code(s): J01.90 - Acute sinusitis, unspecified Plan amoxicillin-pot clavulanate 875-125 mg X 7 days Rest, drink plenty of fluids, tylenol or motrin as needed. Follow up with ENT Follow up with pcp or in clinic for any new or worsening symptoms. Go to ER for shortness of breath, chest pain, palpitations, weakness, dizziness. Medications: New amoxicillin-pot clavulanate 875-125 mg 1 tab PO BID 14 tabs 0RF Coding Level of Care Code Est Pt Level 3 (35609) Diagnoses Acute sinusitis J01.90
== END 2023-08-11 09:46 | disposition home or self-care (01) ==
PROVIDERS: PCP Internal Medicine; Visit Provider Registered Nurse Emergency
DX: J01.90 Acute sinusitis, unspecified (principal)
CPT/HCPCS: 99213

== ENCOUNTER 2023-09-01 14:34 | Outpatient (AMB) | payer BC, SELFPAY ==
[2023-09-01 14:37] VITALS: BP 122/72; PULSE 82; O2SAT 95; BMI 32.8
--- NOTE | 2023-09-01 14:37 | A.OFFVIS_ITS ---
Vital Signs 09/01/23 14:37 Height 5 ft 3 in Weight 185 lb 3.013 oz BMI 32.8 BP 122/72 Blood Pressure Location Lt brachial Position Sitting Pulse 82 Pulse Source Doppler Pulse Oximetry (%) 95 Oxygen Delivery Method Room Air Intake Visit Reasons: sleep apnea Allergies sertraline Adverse Reaction (Unknown, Verified 08/11/23 09:03) FOGGY FEELING dust Allergy (Unknown, Uncoded 04/30/23 16:36) Unknown hayfever Allergy (Unknown, Uncoded 04/30/23 16:36) Unknown HPI HPI sleep apnea: Details: 57-year-old gentleman with underlying obstructive sleep apnea on CPAP, however his machine is no longer walking with interested in continuation of his CPAP therapy. 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 Patient states that his symptoms previously well controlled on CPAP and he wants to continue using it. [facility] Medical History Flu-like symptoms Primary osteoarthritis of left knee GERD (gastroesophageal reflux disease) Tricompartment osteoarthritis of right knee RICKY on CPAP Surgical History Hx of colonoscopy History of thumb surgery S/P rhinoplasty Family History Father Family hx of colon cancer Mother Alive and well Social History (Reviewed 09/01/23 @ 14:42 by Nguyen Coulter [facility]) Household Members: Spouse Housing: House Are you a primary morning caregiver to a significant other at home: No Do you presently have visiting nurse or other home services: No Alcohol intake: current Alcohol intake frequency: holidays/special occasions only Patient Tobacco Use Status: Never used Tobacco e-Cigarette/Vaping Use: Never Used Second Hand Smoke Exposure: No service: No Current occupational status: employed 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 Cognitive needs: No Hearing needs: No Vision needs: No Review of Systems Const Denies daytime sleepiness and Denies fatigue Card Denies dyspnea Resp Denies dyspnea Endo Denies fatigue Physical Exam Vital Signs: Last Vital Signs Pulse 82 09/01/23 14:37 BP 122/72 09/01/23 14:37 Pulse Ox 95 09/01/23 14:37 Oxygen Delivery Method Room Air 09/01/23 14:37 BMI result Body Mass Index 32.8 Const General: no acute distress and alert Nutritional Appearance: not obese Orientation/consciousness: Other orientation findings ( oriented) HEENT Head: Yes atraumatic Eyes General: appearance normal, both eyes and all related structures Sclerae: sclerae normal EOM: EOMs intact bilaterally Neck Neck: Yes supple Lymphatic: no lymphadenopathy noted Resp Effort & Inspection: normal respiratory effort and no use of accessory muscles Auscultation: clear to auscultation bilaterally Cardio Rate: regular rate Rhythm: regular rhythm Heart sounds: no gallops, no murmurs and no rubs Skin General skin exam: other ( warm) Extrem General: No clubbing, No cyanosis and No edema Assessment & Plan Assessment & Plan (1) CSA (central sleep apnea): Code(s): G47.31 - Primary central sleep apnea Category: Medical (2) RICKY (obstructive sleep apnea): Code(s): G47.33 - Obstructive sleep apnea (adult) (pediatric) Category: Medical Plan Underlying combined central and obstructive sleep apnea previously well controlled on CPAP therapy. Now with not functioning positive pressure ventilation machine. Will request new APAP. Coding Level of Care Code New Pt Level 4 (28250) Diagnoses CSA (central sleep apnea) G47.31 RICKY (obstructive sleep apnea) G47.33
== END 2023-09-01 14:54 | disposition home or self-care (01) ==
PROVIDERS: PCP Internal Medicine; Visit Provider Internal Medicine Pulmonary Disease
DX: G47.31 Primary central sleep apnea (principal); G47.33 Obstructive sleep apnea (adult) (pediatric)
CPT/HCPCS: 99204

== ENCOUNTER → 2023-09-01 14:34 | Outpatient (BNVA) | payer BC, SELFPAY | PROVIDERS: PCP Internal Medicine; Visit Provider Internal Medicine Pulmonary Disease ==

== ENCOUNTER 2023-10-01 11:14 | Outpatient (REF) | payer BC, SELFPAY ==
--- NOTE | ~2023-10-01 | XR_ITS ---
EXAMINATION: XR LUMBOSACRAL SPINE CLINICAL INFORMATION: Reason for Exam M54.9 - Dorsalgia, unspecified COMPARISON: None TECHNIQUE: 3 views of the lumbar spine FINDINGS: There are 6 nonrib-bearing lumbar-type vertebral bodies with lumbarization of S1. The last disc space will be referred to as S1-S2. Vertebral body heights are maintained. Dextroconvex curvature of the lumbar spine. There is some mild posterior placement of the distal aspect of the coccyx which can be seen in the setting of sacrococcygeal fracture/dislocation in the appropriate clinical setting if any history of trauma. Multilevel degenerative disc disease with loss of disc space height and facet arthropathy. Paravertebral soft tissues are unremarkable. XR/XR lumbar spine 2-3V IMPRESSION: * There is some mild posterior placement of the distal aspect of the coccyx which can be seen in the setting of sacrococcygeal fracture/dislocation in the appropriate clinical setting if any history of trauma. * Dextroconvex curvature of the lumbar spine. Multilevel degenerative disc disease with loss of disc space height and facet arthropathy. * There are 6 nonrib-bearing lumbar-type vertebral bodies with lumbarization of S1. The last disc space will be referred to as S1-S2. If intervention is being considered recommend total spine radiographs to ensure accurate numbering.
== END 2023-10-01 11:15 | disposition home or self-care (01) ==
LOC: HO.HOSX 11:14
PROVIDERS: PCP Internal Medicine; Visit Provider Physical Medicine & Rehabilitation
DX: M53.3 Sacrococcygeal disorders, not elsewhere classified (principal); M54.9 Dorsalgia, unspecified
CPT/HCPCS: 72100

== ENCOUNTER 2023-10-01 11:14 | Outpatient (AMB) | payer BC, SELFPAY ==
--- NOTE | 2023-10-01 11:16 | A.OFFVIS_ITS ---
Intake Visit Reasons: New Prob- Low back pain Intake Note: Ramirez is a 57 year old male who presents to the office today for lower back pain referred by Lou Patel. Patient reports that he has lower back pain that only radiates into the Hips. He reports that his pain is more located across the lower back and wraps around to the lateral aspect of the bilateral hips at the area of the greater trochanteric bursa Patient denies any history of injury to the bilateral hips. Lumbar spine X-ray done in office today. If nothing is found on exam to be in relation to his lower back, Lou would like to see patient back for further eval of his hips. Allergies sertraline Adverse Reaction (Unknown, Verified 10/01/23 11:35) FOGGY FEELING dust Allergy (Unknown, Uncoded 10/01/23 11:35) Unknown hayfever Allergy (Unknown, Uncoded 10/01/23 11:35) Unknown Medication List - Last Reconciled 10/01/23 by Jaleesa Hernandez MD ascorbic acid (vitamin C) 100 mg PO DAILY azelastine 2 sprays intranasal BID epinephrine IM fexofenadine (Tracie Allergy) 60 mg PO DAILY PRN fluticasone propionate 50 mcg/actuation 1 spray intranasal DAILY montelukast (Singulair) 10 mg PO DAILY 90 days multivitamin (Daily Multi-Vitamin) 1 tab PO DAILY omeprazole 10 mg PO DAILY terazosin 5 mg PO BEDTIME 90 days HPI Comments Details: Was seeing ortho for knee and hip pains. Has has had knee injections. No hip injections. Says two separate spots for lateral hip which does not go to the groin and points to left SI joint. Denies lumbar pain. Non radicular. Denies sciatic . Denies numbness. Denies weakness but does need to pull up to get up from ground (due to knees) and discomfort knees, hips and SI with stairs. No PT yet. [facility] Medical History Flu-like symptoms Primary osteoarthritis of left knee GERD (gastroesophageal reflux disease) Tricompartment osteoarthritis of right knee RICKY on CPAP Surgical History Hx of colonoscopy History of thumb surgery S/P rhinoplasty Family History Father Family hx of colon cancer Mother Alive and well Social History Household Members: Spouse Housing: House Are you a primary urgent care physician to a significant other at home: No Do you presently have visiting nurse or other home services: No Alcohol intake: current Alcohol intake frequency: holidays/special occasions only Patient Tobacco Use Status: Never used Tobacco e-Cigarette/Vaping Use: Never Used Second Hand Smoke Exposure: No service: No Current occupational status: employed 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 Patient was appropriately conversant and oriented. Good historian. MSK: No specific abnormalities found on inspection of the spine and all extremities. No pain with palpation over the lumbar area. Focal tenderness on left SI joint. Nontender greater trochanters. Lumbar ROM was full. Bilateral hip, knee and ankle ROM WNL. No ligamentous laxity or crepitance. No increased effusion. Straight-leg raising test negative. FABERE test positive left. Strength is 5/5 in all muscle groups tested. No increased tone noted. Neurological: Neurologic examination of the upper and lower extremities was nonfocal with intact sensation, muscle stretch reflexes and without focal motor deficits . Babinski was down going bilaterally. Clonus was negative. Gait is non-antalgic without loss of balance. Results Reviewed Results Reviewed: I independently reviewed the results of the following: Lumbar x-rays done in the office today showed decrease in disc space L5-S1. I reviewed records from the following: Orthopedics Assessment & Plan Assessment & Plan (1) Sacroiliac joint dysfunction of left side: Code(s): M53.3 - Sacrococcygeal disorders, not elsewhere classified Category: Medical Plan Left SI joint dysfunction, referring to piriformis and gluteus. No signs of lumbar radiculopathy or myelopathy, despite loss of disc space at L5-S1. We talked about treatment options for left SI joint. He works out on his own. I taught him how to do isometrics to put SI joints back in place. We looked at exercises that might be good for him without aggravating knee pain. Holding off referral to PT since he can do exercises at home. Holding off on sending him for injections. Assessment and plan discussed with patient, and patient was agreeable. All questions were answered thoroughly. Follow up 6 weeks. Jaleesa Hernandez MD, LUCIA Board Certified, [place] [employer] and [employer] (ABPMR) Board Certified, [place] [employer] Electro[employer] (ABEM) Orders: Orders XR lumbar spine 2-3V Today M54.9 - Dorsalgia, unspecified Coding Level of Care Code New Pt Level 4 (60250) Diagnoses Sacroiliac joint dysfunction of left side M53.3
== END 2023-10-01 12:05 | disposition home or self-care (01) ==
PROVIDERS: PCP Internal Medicine; Referring Provider Internal Medicine; Visit Provider Physical Medicine & Rehabilitation
DX: M53.3 Sacrococcygeal disorders, not elsewhere classified (principal)
CPT/HCPCS: 99202

== ENCOUNTER 2023-10-01 13:14 | Outpatient (AMB) | payer BC, SELFPAY ==
[2023-10-01 13:18] VITALS: BP 142/80; PULSE 75; O2SAT 97; BMI 34.1
--- NOTE | 2023-10-01 13:18 | MHC.PC.OV ---
Vital Signs 10/01/23 13:18 Height 5 ft 3 in Weight 192 lb 4 oz BMI 34.1 BP 142/80 H Blood Pressure Location Rt brachial Position Sitting Pulse 75 Pulse Source Pulse Oximeter Pulse Oximetry (%) 97 Oxygen Delivery Method Room Air Intake Visit Reasons: 6 Month F/U Allergies sertraline Adverse Reaction (Unknown, Verified 10/01/23 13:32) FOGGY FEELING dust Allergy (Unknown, Uncoded 10/01/23 11:35) Unknown hayfever Allergy (Unknown, Uncoded 10/01/23 11:35) Unknown Medication List - Last Reconciled 10/01/23 by Lolis Farias MD ascorbic acid (vitamin C) 100 mg PO DAILY azelastine 2 sprays intranasal BID epinephrine IM fexofenadine (Tracie Allergy) 60 mg PO DAILY PRN fluticasone propionate 50 mcg/actuation 1 spray intranasal DAILY montelukast (Singulair) 10 mg PO DAILY 90 days multivitamin (Daily Multi-Vitamin) 1 tab PO DAILY omeprazole 10 mg PO DAILY terazosin 5 mg PO BEDTIME 90 days Tobacco use date assessed: 10/01/23 Dental Screening Dental Screen Date: 10/01/23 Did you have a dental visit in the last 12 months?: Yes Did you have a dental problem in the last 6 months where you did not have access to dental care?: No Was dental information given to patient?: Patient has dentist HPI 6 Month F/U HPI Details Patient is a 57-year-old gentleman came in today to talk about recurrent sinusitis Patient has been having recurrent sinusitis for years He has seen immunology fireworks display specialist, ENT specialist has had imaging has had DNS septum repaired However continued to have infections In last 1 year he has taken antibiotic 6 times every other month he needs prednisone and antibiotic Currently patient is seeing an ENT specialist we talked about prophylactic antibiotic small dose that he will discuss with ENT specialist He has had immunoglobulin test done which was within normal limit However I do not see complement testing done which I have ordered for him. At this time he is feeling good and there is no sinus pain or nasal discharge [facility] Medical History Flu-like symptoms Primary osteoarthritis of left knee GERD (gastroesophageal reflux disease) Tricompartment osteoarthritis of right knee RICKY on CPAP Surgical History Hx of colonoscopy History of thumb surgery S/P rhinoplasty Family History Father Family hx of colon cancer Mother Alive and well Social History Household Members: Spouse Housing: House Are you a primary child care attendant school to a significant other at home: No Do you presently have visiting nurse or other home services: No Alcohol intake: current Alcohol intake frequency: holidays/special occasions only Patient Tobacco Use Status: Never used Tobacco e-Cigarette/Vaping Use: Never Used Second Hand Smoke Exposure: No service: No Current occupational status: employed 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 1. Little interest or pleasure in doing things: not at all 2. Feeling down, depressed, or hopeless: not at all 3. Trouble falling or staying asleep, or sleeping too much: not at all 4. Feeling tired or having little energy: not at all 5. Poor appetite or overeating: not at all 6. Feeling bad about yourself - or that you are a failure or have let yourself or your family down: not at all 7. Trouble concentrating on things, such as reading the newspaper or watching television: not at all 8. Moving or speaking so slowly that other people could have noticed. Or the opposite - being so fidgety or restless that you have been moving around a lot more than usual: not at all 9. Thoughts that you would be better off or of hurting yourself in some way: not at all Total score: 0 Depression Screening Interpretation: Negative Depression Screening Done: Yes 93506 - PHQ-9 Billing: Yes Source: Developed by Drs. Vicente Post, Chantell Lopez, Christiano Linares and colleagues, with an educational ian from [employer]. Thrive Questionnaire Date Thrive assessed: 10/01/23 I am a: Patient What is your living situation today?: I have a steady place to live Within the past 12 months, did the food you bought not last and you didn't have the money to get more?: Never true Within the past 12 months, did you worry whether your food would run out before you got money to buy more?: Never true Do you have trouble paying for medicines?: No Do you have trouble getting transportation to medical appointments?: No Do you have trouble paying your heating and electricity bill?: No Do you have trouble taking care of your child, family member or friend?: No Do you have trouble with day-to-day activities such as bathing, preparing meals, shopping, managing finances, etc.?: No Are you currently unemployed and looking for a job?: No Are you interested in more education?: No Please select the resources that you would like help with: None Currently or been in a relationship where the following occur: No concerns reported THRIVE Score: 0 AUDIT C Alcohol Use Questionnaire (AUDIT-C) 1. How often do you have a drink containing alcohol?: Never 3. How often do you have six or more drinks on one occasion?: Never Total Score: 0 Score Reviewed/Action Taken: Yes PATRICE-7 AMB Questionnaire PATRICE-7 Date PATRICE - 7 assessed: 10/01/23 Feeling nervous, anxious, or on edge: 0 = Not at all Not being able to stop or control worryin = Not at all Worrying too much about different things: 0 = Not at all Trouble relaxin = Not at all Being so restless that it is hard to sit still: 0 = Not at all Becoming easily annoyed or irritable: 0 = Not at all Feeling afraid as if something awful might happen: 0 = Not at all Total PATRICE-7 score (0-4 normal; 5-9 mild; 10-14 moderate; 15-21 severe): 0 Source: Developed by Drs. Vicente Post, Chantell Lopez, Christiano Linares and colleagues, with an educational ian from [employer]. PATRICE-7 Assessment Billing PATRICE-7 Assessment Tool: PATRICE-7 Assessment 04895 Review of Systems Const Denies chills and Denies fever(s) ENT Denies epistaxis and Denies nasal discharge Card Denies chest pain Resp Denies chest congestion, Denies cough and Denies hemoptysis GI Denies diarrhea and Denies nausea Skin/Breast Denies rash Neuro Reports no additional complaints Psych Reports no additional complaints Endo Reports no additional complaints Physical exam (Primary Care) Vital Signs: Last Vital Signs Pulse 75 10/01/23 13:18 BP 142/80 H 10/01/23 13:18 Pulse Ox 97 10/01/23 13:18 Oxygen Delivery Method Room Air 10/01/23 13:18 BMI result Body Mass Index 34.1 Tobacco/Smoking Status: Tobacco use Status Tobacco use date assessed 10/01/23 10/01/23 13:32 Patient Tobacco Use Status Never used Tobacco 10/01/23 13:18 e-Cigarette/Vaping Use Never Used 10/01/23 13:18 PHQ-9: PHQ-9 Score PHQ-9: Total score 0 10/01/23 13:51 Depression Screening Interpretation: Negative Thrive Assessment: Date of Thrive Assessment Date Thrive assessed 10/01/23 10/01/23 13:32 Currently or been in a relationship where the following occur: No concerns reported Const General: cooperative, comfortable and no acute distress Orientation/consciousness: patient oriented x3 HENMT Head: Yes normocephalic Eyes General: appearance normal, both eyes and all related structures Neck Neck: Yes supple Resp Effort & Inspection: normal respiratory effort, no cough and no stridor Cardio Rhythm: regular rhythm Heart sounds: S1 normal heart sound present and S2 normal heart sound present Skin General skin exam: turgor normal Neuro General: patient oriented x3, tone normal and moves all extremities Extrem Right lower extremity: no edema Left lower extremity: no edema Assessment and Plan Assessment & Plan (1) Recurrent sinusitis: Code(s): J32.9 - Chronic sinusitis, unspecified Plan Patient is a 57-year-old gentleman came in today to talk about recurrent sinusitis Patient has been having recurrent sinusitis for years He has seen immunology fireworks display specialist, ENT specialist has had imaging has had DNS septum repaired However continued to have infections In last 1 year he has taken antibiotic 6 times every other month he needs prednisone and antibiotic Currently patient is seeing an ENT specialist we talked about prophylactic antibiotic small dose that he will discuss with ENT specialist He has had immunoglobulin test done which was within normal limit However I do not see complement testing done which I have ordered for him. At this time he is feeling good and there is no sinus pain or nasal discharge Orders: Orders Complement C3 Today J32.9 - Chronic sinusitis, unspecified C1Q Complement Component Today J32.9 - Chronic sinusitis, unspecified Complement C4 Today J32.9 - Chronic sinusitis, unspecified Complement Total CH50 Today J32.9 - Chronic sinusitis, unspecified Coding Level of Care Code Est Pt Level 4 (09376) Diagnoses Recurrent sinusitis J32.9 Additional Codes PATRICE-7 Assessment Billing - PATRICE-7 Assessment Tool: PATRICE-7 Assessment 13257 ([id number])
== END 2023-10-01 17:55 | disposition home or self-care (01) ==
PROVIDERS: PCP Internal Medicine; Visit Provider Internal Medicine
DX: J32.9 Chronic sinusitis, unspecified (principal)
CPT/HCPCS: 99214

== ENCOUNTER 2023-10-09 13:38 | Outpatient (REF) | payer BC, SELFPAY ==
[2023-10-13 10:23] LABS: Complement C3 33 mg/dL (82-185)
[2023-10-14 13:44] LABS: Complement Total CH50 51 U/mL (31-60)
[2023-10-16 16:33] LABS: C1Q Complement Component 5.8 mg/dL (5.0-8.6)
== END 2023-10-09 13:39 | disposition home or self-care (01) ==
LOC: HO.HMGCLDS 13:38
PROVIDERS: PCP Internal Medicine; Visit Provider Internal Medicine
DX: J32.9 Chronic sinusitis, unspecified (principal)
CPT/HCPCS: 36415; 86160; 86162

== ENCOUNTER 2023-11-13 10:19 | Outpatient (AMB) | payer BC, SELFPAY ==
[2023-11-13 10:32] VITALS: BP 116/78; PULSE 67; TEMP 36.9; O2SAT 98; BMI 34.0
--- NOTE | 2023-11-13 10:32 | MHC.OFFWIV ---
Intake Vital Signs 11/13/23 10:32 Height 5 ft 3 in Weight 192 lb BMI 34.0 BP 116/78 Blood Pressure Location Lt brachial Position Sitting Pulse 67 Pulse Source Pulse Oximeter Temp 98.5 F Temp Source Oral Pulse Oximetry (%) 98 Oxygen Delivery Method Room Air Intake Visit Reasons: EP ?sinus Infection Intake Note: pt c/o ? Sinus infection. Pressure, congestion, fatigue. Started w/ URI last friday. Patient Tobacco Use Status: Never used Tobacco Allergies sertraline Adverse Reaction (Unknown, Verified 11/13/23 10:33) FOGGY FEELING dust Allergy (Unknown, Uncoded 11/13/23 10:33) Unknown hayfever Allergy (Unknown, Uncoded 11/13/23 10:33) Unknown Do you need a note to return to daycare/school/sports/work: No HPI HPI Comments History of Present Illness Details 57 y/o male patient who presents to the walk in clinic with c/o Sinus congestion and pressure. He believes he has Sinus infection and asking for Abx today. He does have h/o Seasonal Allergies, currently on medications. He also sees ENT (Dr. Whitley). Denies Fevers, chills, nausea or vomiting. PFSH Medical History Flu-like symptoms Primary osteoarthritis of left knee GERD (gastroesophageal reflux disease) Tricompartment osteoarthritis of right knee RICKY on CPAP Surgical History Hx of colonoscopy History of thumb surgery S/P rhinoplasty Family History Father Family hx of colon cancer Mother Alive and well Social History Household Members: Spouse Housing: House Are you a primary career placement services counselor to a significant other at home: No Do you presently have visiting nurse or other home services: No Alcohol intake: current Alcohol intake frequency: holidays/special occasions only Patient Tobacco Use Status: Never used Tobacco e-Cigarette/Vaping Use: Never Used Second Hand Smoke Exposure: No service: No Current occupational status: employed 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 Cognitive needs: No Hearing needs: No Vision needs: No Review of Systems Const All systems reviewed & are unremarkable except as noted in HPI and below Physical Exam Vital Signs: Last Vital Signs Temp 98.5 F 11/13/23 10:32 Pulse 67 11/13/23 10:32 BP 116/78 11/13/23 10:32 Pulse Ox 98 11/13/23 10:32 Oxygen Delivery Method Room Air 11/13/23 10:32 BMI result Body Mass Index 34.0 Const General: cooperative and no acute distress Nutritional Appearance: obese Orientation/consciousness: patient oriented x3 HEENT Head: Yes normocephalic Ears: external ears normal and TM abnormal bulging bilateral and with fluid behind the TM bilateral General nose exam: Abnormal mucous membranes and turbinates present boggy and erythematous Face and sinus: Yes sinuses nontender Mouth: moist mucous membranes Throat: Yes posterior oropharynx normal Resp Effort & Inspection: normal respiratory effort and able to speak in complete sentences Auscultation: clear to auscultation bilaterally, no crackles, no rales, no rhonchi and no wheezes Cardio Heart sounds: S1 normal heart sound present and S2 normal heart sound present Skin General skin exam: no rashes or lesions noted Neuro General: patient oriented x3, gait normal and moves all extremities Psych Speech and movement: Normal speech and movement present Assessment & Plan Assessment & Plan (1) Nasal sinus congestion: Code(s): R09.81 - Nasal congestion Plan: Ordered Amoxicillin. Advised Pt against taking Abx, since this is not Bacterial Sinus infection. F/u with ENT F/u with PCP Continue taking your prescribed medications. Medications: New amoxicillin-pot clavulanate 875-125 mg 1 tab PO BID 5 days 10 tabs 0RF R09.81 - Nasal congestion Coding Level of Care Code Est Pt Level 3 (22339) Diagnoses Nasal sinus congestion R09.81 Time Spent (min) 15
== END 2023-11-13 11:09 | disposition home or self-care (01) ==
PROVIDERS: PCP Internal Medicine; Visit Provider Nurse Practitioner Family
DX: R09.81 Nasal congestion (principal)
CPT/HCPCS: 99213

== ENCOUNTER 2023-11-19 10:52 | Outpatient (AMB) | payer BC, SELFPAY ==
[2023-11-19 10:53] VITALS: BMI 34.0
--- NOTE | 2023-11-19 10:53 | A.OFFVIS_ITS ---
Vital Signs 11/19/23 10:53 Height 5 ft 3 in Weight 192 lb BMI 34.0 Intake Visit Reasons: OV- Low back pain f/u Intake Note: Ramirez is a 57 year old male who presents today as a new patient with complaints of bilateral hip pain, his pain is felt along the lower back and wraps around the lateral aspect of hips. He was referred by Lou Patel for lower back involvement of hip pain - if no lower back involvement Lou would like to see him back for further investigation of the hips. Allergies sertraline Adverse Reaction (Unknown, Verified 11/19/23 10:54) FOGGY FEELING dust Allergy (Unknown, Uncoded 11/19/23 10:54) Unknown hayfever Allergy (Unknown, Uncoded 11/19/23 10:54) Unknown HPI Comments Details: Was seeing ortho for knee and hip pains. Has has had knee injections. No hip injections. Says two separate spots for lateral hip which does not go to the groin and points to left SI joint. Denies lumbar pain. Non radicular. Denies sciatic . Denies numbness. Denies weakness but does need to pull up to get up from ground (due to knees) and discomfort knees, hips and SI with stairs. No PT yet. Exam perez patient presented as SI joint dysfunction. Xray did show degenerative changes, lowest level. Patient taught to do exercises for SI joint. Patient denies any tailbone pain. Patient denies any trauma to the tailbone in the past. Continues to have left SI joints/lateral hip pain. Nonradicular. Denies any numbness or tingling down the left foot. No footdrop. PFSH Medical History Flu-like symptoms Primary osteoarthritis of left knee GERD (gastroesophageal reflux disease) Tricompartment osteoarthritis of right knee RICKY on CPAP Surgical History Hx of colonoscopy History of thumb surgery S/P rhinoplasty Family History Father Family hx of colon cancer Mother Alive and well Social History Household Members: Spouse Housing: House Are you a primary palliative care physician to a significant other at home: No Do you presently have visiting nurse or other home services: No Alcohol intake: current Alcohol intake frequency: holidays/special occasions only Patient Tobacco Use Status: Never used Tobacco e-Cigarette/Vaping Use: Never Used Second Hand Smoke Exposure: No service: No Current occupational status: employed 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 Patient was appropriately conversant and oriented. Good historian. MSK: No specific abnormalities found on inspection of the spine and all extremities. No pain with palpation over the lumbar area. Focal tenderness on left SI joint. Nontender greater trochanters. Lumbar ROM was full. Bilateral hip, knee and ankle ROM WNL. No ligamentous laxity or crepitance. No increased effusion. Straight-leg raising test negative. FABERE test positive left. Strength is 5/5 in all muscle groups tested. No increased tone noted. Neurological: Neurologic examination of the upper and lower extremities was nonfocal with intact sensation, muscle stretch reflexes and without focal motor deficits . Babinski was down going bilaterally. Clonus was negative. Gait is non-antalgic without loss of balance. Results Reviewed Results Reviewed: Ordering Physician: Jaleesa Almeida Date of Service: 10/01/23 Procedure(s): XR lumbar spine 2-3V Accession Number(s): [id number] cc: Lolis Farias MD; Jaleesa Almeida~ EXAMINATION: XR LUMBOSACRAL SPINE CLINICAL INFORMATION: Reason for Exam M54.9 - Dorsalgia, unspecified COMPARISON: None TECHNIQUE: 3 views of the lumbar spine FINDINGS: There are 6 nonrib-bearing lumbar-type vertebral bodies with lumbarization of S1. The last disc space will be referred to as S1-S2. Vertebral body heights are maintained. Dextroconvex curvature of the lumbar spine. There is some mild posterior placement of the distal aspect of the coccyx which can be seen in the setting of sacrococcygeal fracture/dislocation in the appropriate clinical setting if any history of trauma. Multilevel degenerative disc disease with loss of disc space height and facet arthropathy. Paravertebral soft tissues are unremarkable. XR/XR lumbar spine 2-3V IMPRESSION: * There is some mild posterior placement of the distal aspect of the coccyx which can be seen in the setting of sacrococcygeal fracture/dislocation in the appropriate clinical setting if any history of trauma. * Dextroconvex curvature of the lumbar spine. Multilevel degenerative disc disease with loss of disc space height and facet arthropathy. * There are 6 nonrib-bearing lumbar-type vertebral bodies with lumbarization of S1. The last disc space will be referred to as S1-S2. If intervention is being considered recommend total spine radiographs to ensure accurate numbering. Assessment & Plan Assessment & Plan (1) Sacroiliac joint dysfunction of left side: Code(s): M53.3 - Sacrococcygeal disorders, not elsewhere classified Category: Medical (2) Lumbar radiculitis: Code(s): M54.16 - Radiculopathy, lumbar region Category: Medical (3) Lumbar spondylosis: Code(s): M47.816 - Spondylosis without myelopathy or radiculopathy, lumbar region Category: Medical Plan Discussed that sometimes L5-S1 disc herniation or L5-S1 radiculopathy can cause similar symptoms with SI joint dysfunction. Patient had undergone adequate conservative management including physician taught home exercises without improvement of condition. It would be reasonable to obtain further imaging however patient is very claustrophobic. We will order a CT lumbar spine instead. Specifically ruling out left L5-S1 disc herniation. He denies any tailbone pain or any tailbone trauma. Continue home exercises. Assessment and plan discussed with patient, and patient was agreeable. All questions were answered thoroughly. We will call patient after CT results. Jaleesa Hernandez MD, LUCIA Board Certified, [place] Board [employer] and Rehabilitation (ABPMR) Board Certified, [place] Board [employer] Electrodiagnostic [employer] (ABEM) Orders: Orders CT lumbar spine wo IV con Today M47.816 - Spondylosis without myelopathy or radiculopathy, lumbar region, M54.16 - Radiculopathy, lumbar region Coding Level of Care Code Est Pt Level 4 (29570) Diagnoses Sacroiliac joint dysfunction of left side M53.3 Lumbar radiculitis M54.16 Lumbar spondylosis M47.816
== END 2023-11-19 11:22 | disposition home or self-care (01) ==
PROVIDERS: PCP Internal Medicine; Visit Provider Physical Medicine & Rehabilitation
DX: M53.3 Sacrococcygeal disorders, not elsewhere classified (principal); M54.16 Radiculopathy, lumbar region; M47.816 Spondylosis without myelopathy or radiculopathy, lumbar region
CPT/HCPCS: 99213

== ENCOUNTER → 2023-11-19 10:52 | Outpatient (BNVA) | payer BC, SELFPAY | PROVIDERS: PCP Internal Medicine; Visit Provider Physical Medicine & Rehabilitation ==

== ENCOUNTER 2023-11-27 14:26 | Outpatient (REF) | payer BC, SELFPAY ==
--- NOTE | ~2023-11-27 | CT_ITS ---
EXAMINATION: CT LUMBAR SPINE WITHOUT CONTRAST CLINICAL INFORMATION: Bilateral L5-S1 disc herniation; lumbar spondylosis without myelopathy radiculopathy. COMPARISON: Lumbar spine radiographs dated 10/23/2023. TECHNIQUE: Without the addition of intravenous contrast, multiple contiguous multidetector transaxial sections are obtained through the lumbar spine. This CT examination was performed using dose optimization techniques as appropriate, variously including the following: *Automated exposure control *Adjustment of mA and/or kV according to patient size (this includes techniques or standardized protocols for targeted exams where dose is matched to indication/reason for exam; i.e. extremities or head) *Use of iterative reconstruction technique DLP; 541 mGy-cm FINDINGS: There are 5 lumbar-type vertebrae noted not articulating with a rib. The T12-L1 through L2-3 intervertebral levels are unremarkable. At L3-4, there is a mild annular disc bulge. No focal disc herniation is seen. There is mild central canal stenosis. The bilateral lateral recesses and neural foramina appear patent. The facets are unremarkable. Mild anterior endplate arthropathy is seen. At L4-5, there is mild posterior endplate arthropathy. A mild annular disc bulge is seen, and there is a small, broad-based right lateral focal disc herniation. There is mild central canal stenosis. There is narrowing of the right lateral recess, and the left lateral recess is patent. The right neural foramen is mildly narrowed, contributed to by mild facet arthropathy. The left neural foramen is patent. At L5-S1, there is mild disc space narrowing. No significant annular disc bulge or focal disc herniation is seen. There is no significant central canal stenosis. The bilateral lateral recesses and the neural foramina appear patent. The facets are unremarkable. 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 CT/CT lumbar spine wo IV con IMPRESSION: 1. At L3-4, there is a mild annular disc bulge, with secondary mild central canal stenosis. The bilateral lateral recesses and neural foramina appear patent. 2. At L4-5, there is a mild annular disc bulge, with superimposed small, broad-based right lateral focal disc herniation. There is mild central canal stenosis. There is right lateral recess narrowing, and there is mild narrowing of the right neural foramen, contributed to by facet arthropathy. These findings raise the question of right L4 and L5 nerve root impingement. Please correlate clinically. Electronically signed by: Jorge L Ayala MD 12/26/2023 04:45 PM EDT RP
== END 2023-11-27 14:27 | disposition home or self-care (01) ==
LOC: HO.CT 14:26
PROVIDERS: PCP Internal Medicine; Visit Provider Physical Medicine & Rehabilitation
DX: M47.816 Spondylosis without myelopathy or radiculopathy, lumbar region (principal); M54.16 Radiculopathy, lumbar region
CPT/HCPCS: 72131

== ENCOUNTER 2024-01-16 10:56 | Outpatient (AMB) | payer BC, SELFPAY ==
[2024-01-16 10:58] VITALS: BMI 34.0
--- NOTE | 2024-01-16 10:58 | A.OFFVIS_ITS ---
Vital Signs 01/16/24 10:58 Height 5 ft 3 in Weight 192 lb BMI 34.0 Intake Visit Reasons: OV- Review of Lumbar spine CT Intake Note: Ramirez is a 58 year old male who presents to the office today for a review of his lumbar spine CT. Allergies sertraline Adverse Reaction (Unknown, Verified 01/16/24 10:59) FOGGY FEELING dust Allergy (Unknown, Uncoded 01/16/24 10:59) Unknown hayfever Allergy (Unknown, Uncoded 01/16/24 10:59) Unknown HPI Comments Details: Was seeing ortho for knee and hip pains. Has has had knee injections. No hip injections. Says two separate spots for lateral hip which does not go to the groin and points to left SI joint. Denies lumbar pain. Non radicular. Denies sciatic . Denies numbness. Denies weakness but does need to pull up to get up from ground (due to knees) and discomfort knees, hips and SI with stairs. No PT yet. Exam perez patient presented as SI joint dysfunction. Xray did show degenerative changes, lowest level. Patient taught to do exercises for SI joint. Patient denies any tailbone pain. Patient denies any trauma to the tailbone in the past. Continues to have left SI joints/lateral hip pain. Nonradicular. Denies any numbness or tingling down the left foot. No footdrop. CT scan lumbar spine done, patient claustrophobic, to rule out any disc herniation. Tiny disc herniation L4-5, right-sided. Patient does not have any symptoms in the right side. L4-5 foramen patent on left side. Patient continues to have focal pain on left SI joint. He has done conservative management including physician directed home exercises specifically for SI joint, without relief. [facility] Medical History Flu-like symptoms Primary osteoarthritis of left knee GERD (gastroesophageal reflux disease) Tricompartment osteoarthritis of right knee RICKY on CPAP Surgical History Hx of colonoscopy History of thumb surgery S/P rhinoplasty Family History Father Family hx of colon cancer Mother Alive and well Social History Household Members: Spouse Housing: House Are you a primary careers counsellor to a significant other at home: No Do you presently have visiting nurse or other home services: No Alcohol intake: current Alcohol intake frequency: holidays/special occasions only Patient Tobacco Use Status: Never used Tobacco e-Cigarette/Vaping Use: Never Used Second Hand Smoke Exposure: No service: No Current occupational status: employed 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 Patient was appropriately conversant and oriented. Good historian. MSK: No specific abnormalities found on inspection of the spine and all extremities. No pain with palpation over the lumbar area. Focal tenderness on left SI joint. No tenderness over right side. Nontender greater trochanters. Lumbar ROM was limited extension due to pain. Bilateral hip, knee and ankle ROM WNL. No ligamentous laxity or crepitance. No increased effusion. Straight-leg raising test negative. FABERE test positive left back pain. Gillet test positive stiffness on left. Strength is 5/5 in all muscle groups tested. No increased tone noted. Neurological: Neurologic examination of the upper and lower extremities was nonfocal with intact sensation, muscle stretch reflexes and without focal motor deficits . Babinski was down going bilaterally. Clonus was negative. Gait is non-antalgic without loss of balance. Results Reviewed Results Reviewed: Ordering Physician: Jaleesa Almeida Date of Service: 11/27/23 Procedure(s): CT lumbar spine wo IV con Accession Number(s): [id number] cc: Lolis Farias MD; Jaleesa Almeida~ EXAMINATION: CT LUMBAR SPINE WITHOUT CONTRAST CLINICAL INFORMATION: Bilateral L5-S1 disc herniation; lumbar spondylosis without myelopathy radiculopathy. COMPARISON: Lumbar spine radiographs dated 10/23/2023. TECHNIQUE: Without the addition of intravenous contrast, multiple contiguous multidetector transaxial sections are obtained through the lumbar spine. This CT examination was performed using dose optimization techniques as appropriate, variously including the following: *Automated exposure control *Adjustment of mA and/or kV according to patient size (this includes techniques or standardized protocols for targeted exams where dose is matched to indication/reason for exam; i.e. extremities or head) *Use of iterative reconstruction technique DLP; 541 mGy-cm FINDINGS: There are 5 lumbar-type vertebrae noted not articulating with a rib. The T12-L1 through L2-3 intervertebral levels are unremarkable. At L3-4, there is a mild annular disc bulge. No focal disc herniation is seen. There is mild central canal stenosis. The bilateral lateral recesses and neural foramina appear patent. The facets are unremarkable. Mild anterior endplate arthropathy is seen. At L4-5, there is mild posterior endplate arthropathy. A mild annular disc bulge is seen, and there is a small, broad-based right lateral focal disc herniation. There is mild central canal stenosis. There is narrowing of the right lateral recess, and the left lateral recess is patent. The right neural foramen is mildly narrowed, contributed to by mild facet arthropathy. The left neural foramen is patent. At L5-S1, there is mild disc space narrowing. No significant annular disc bulge or focal disc herniation is seen. There is no significant central canal stenosis. The bilateral lateral recesses and the neural foramina appear patent. The facets are unremarkable. 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 CT/CT lumbar spine wo IV con IMPRESSION: 1. At L3-4, there is a mild annular disc bulge, with secondary mild central canal stenosis. The bilateral lateral recesses and neural foramina appear patent. 2. At L4-5, there is a mild annular disc bulge, with superimposed small, broad-based right lateral focal disc herniation. There is mild central canal stenosis. There is right lateral recess narrowing, and there is mild narrowing of the right neural foramen, contributed to by facet arthropathy. These findings raise the question of right L4 and L5 nerve root impingement. Please correlate clinically. Electronically signed by: Jorge L Ayala MD 12/26/2023 04:45 PM EDT RP Assessment & Plan Assessment & Plan (1) Sacroiliac joint dysfunction of left side: Code(s): M53.3 - Sacrococcygeal disorders, not elsewhere classified Category: Medical (2) Lumbar disc herniation: Code(s): M51.26 - Other intervertebral disc displacement, lumbar region Category: Medical Plan CT scan lumbar spine done, patient claustrophobic, to rule out any disc herniation. Tiny disc herniation L4-5, right-sided. Patient does not have any symptoms in the right side. L4-5 foramen patent on left side. Patient continues to have focal pain on left SI joint. He has done conservative management including physician directed home exercises specifically directed for the SI joint, without relief. It would be reasonable to try a left SI joint injection. Referral to pain management placed. Patient eager to proceed. Assessment and plan discussed with patient, and patient was agreeable. All questions were answered thoroughly. Follow up after injection. Jaleesa Hernandez MD, LUCIA Board Certified, [place] [employer] and Rehabilitation (ABPMR) Board Certified, [place] Board of Electrodiagnostic Medicine (ABEM) Orders: Referrals Pain Management Referral M53.3 - Sacrococcygeal disorders, not elsewhere classified Coding Level of Care Code Est Pt Level 4 (14327) Diagnoses Sacroiliac joint dysfunction of left side M53.3 Lumbar disc herniation M51.26
== END 2024-01-16 11:13 | disposition home or self-care (01) ==
PROVIDERS: PCP Internal Medicine; Visit Provider Physical Medicine & Rehabilitation
DX: M53.3 Sacrococcygeal disorders, not elsewhere classified (principal); M51.26 Other intervertebral disc displacement, lumbar region
CPT/HCPCS: 99213

== ENCOUNTER → 2024-01-16 10:56 | Outpatient (BNVA) | payer BC, SELFPAY | PROVIDERS: PCP Internal Medicine; Visit Provider Physical Medicine & Rehabilitation ==

== ENCOUNTER 2024-02-05 06:23 | Outpatient (REF) | payer BC, SELFPAY | END 2024-02-05 06:24 | disposition home or self-care (01) | LOC: CF 06:23 | PROVIDERS: Visit Provider Internal Medicine | DX: M53.3 Sacrococcygeal disorders, not elsewhere classified (principal) | CPT/HCPCS: 27096; J2003; J2795 ==

== ENCOUNTER 2024-02-05 12:30 | Outpatient (AMB) | payer BC, SELFPAY ==
[2024-02-05 12:50] VITALS: BP 144/82; PULSE 72; O2SAT 97
--- NOTE | 2024-02-05 12:50 | A.OFFVIS_ITS ---
Vital Signs 02/05/24 12:50 02/05/24 13:27 BP 144/82 H 148/73 H Blood Pressure Location Rt brachial Rt brachial Position Sitting Sitting Pulse 72 75 Pulse Source Pulse Oximeter Pulse Oximeter Pulse Oximetry (%) 97 96 Oxygen Delivery Method Room Air Room Air Intake Visit Reasons: Left Dx SIJ inj Allergies sertraline Adverse Reaction (Unknown, Verified 01/16/24 10:59) FOGGY FEELING dust Allergy (Unknown, Uncoded 01/16/24 10:59) Unknown hayfever Allergy (Unknown, Uncoded 01/16/24 10:59) Unknown HPI HPI Left Dx SIJ inj: Details: Patient presents for scheduled procedure. Denies any recent cough, cold, infection, fever or other significant changes in medical history since last office visit. [facility] Medical History Flu-like symptoms Primary osteoarthritis of left knee GERD (gastroesophageal reflux disease) Tricompartment osteoarthritis of right knee RICKY on CPAP Surgical History Hx of colonoscopy History of thumb surgery S/P rhinoplasty Family History Father Family hx of colon cancer Mother Alive and well Social History Household Members: Spouse Housing: House Are you a primary toddler caregiver to a significant other at home: No Do you presently have visiting nurse or other home services: No Alcohol intake: current Alcohol intake frequency: holidays/special occasions only Patient Tobacco Use Status: Never used Tobacco e-Cigarette/Vaping Use: Never Used Second Hand Smoke Exposure: No service: No Current occupational status: employed 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 Immediately prior to starting the procedure, a time-out safety check was conducted. The patient's identification, procedure name, procedure site, and procedure laterality were confirmed with the patient. ? Patient was placed prone on the fluoroscopy table and the lumbosacral area was prepped using ChloraPrep and draped with sterile drapein standard fashion. The C-arm was rotated in a contralateral oblique fashion until the medial border of the iliac crest no longer foreshadowed the posterior sacroiliac joint line. The skin and subcutaneous tissue was anesthetized using 1 mL of 0.75% plain lidocaine with 1.5-inch 25-gauge needle in the middle region of the joint line.? A 3.5-inch 22-gauge spinal needle with small bend on the tip was slowly advanced towards the joint line, coaxial to the x-ray beam. Once bony content was obtained, the needle was easily slid into the intra-articular space.? Intra- articular needle position was confirmed using lateral fluoroscopy.? A total volume of 2.5mL of solution containing ropivacaine 0.5% was injected intra- articularly. The stylet was reinserted and needle was removed. The patient tolerated the procedure well. Patient denied any lower extremity weakness or numbness. Patient was observed for 30 min and was discharged after fulfilling the standard discharge criteria. Coding 10302 - Sacroiliac Procedure code (CPT) selection complete Assessment & Plan Assessment & Plan (1) Sacroiliac joint dysfunction of left side: Code(s): M53.3 - Sacrococcygeal disorders, not elsewhere classified Category: Medical Plan Patient is status post diagnostic left sacroiliac joint injection. Patient mike ated procedure well and was discharged home in stable condition with discharge instructions. All questions were answered. We will follow-up via telephone or in clinic to assess response to therapy. A follow-up appointment was made during today's visit. Orders: Orders FL guidance in treatment room Today M53.3 - Sacrococcygeal disorders, not elsewhere classified Coding Level of Care Code Procedure Only Diagnoses Sacroiliac joint dysfunction of left side M53.3 CPT Codes Coding - Joint 9: 83758 - Sacroiliac ([id number])
[2024-02-05 13:27] VITALS: BP 148/73; PULSE 75; O2SAT 96
== END 2024-02-05 13:26 | disposition home or self-care (01) ==
LOC: HO.PMCPRC 12:30
PROVIDERS: PCP Internal Medicine; Visit Provider Internal Medicine
DX: M53.3 Sacrococcygeal disorders, not elsewhere classified (principal)
CPT/HCPCS: 27096

== ENCOUNTER 2024-02-11 09:58 | Outpatient (AMB) | payer BC, SELFPAY ==
--- NOTE | 2024-02-11 10:10 | A.OFFVIS_ITS ---
Vital Signs 02/11/24 10:11 Height 5 ft 3 in Weight 199 lb BMI 35.2 BP 139/80 Blood Pressure Location Lt brachial Position Sitting Respiration 15 Pulse 95 Pulse Source Pulse Oximeter Pulse Oximetry (%) 95 Oxygen Delivery Method Room Air Intake Visit Reasons: s/p left Dx SIJ inj Allergies dust Allergy (Unknown, Uncoded 02/11/24 10:12) Unknown hayfever Allergy (Unknown, Uncoded 02/11/24 10:12) Unknown Medication List - Last Reconciled 02/11/24 by Davina Mckeon LPN ascorbic acid (vitamin C) 100 mg PO DAILY azelastine 2 sprays intranasal BID epinephrine IM fexofenadine (Tracie Allergy) 60 mg PO DAILY PRN fluticasone propionate 50 mcg/actuation 1 spray intranasal DAILY montelukast (Singulair) 10 mg PO DAILY 90 days multivitamin (Daily Multi-Vitamin) 1 tab PO DAILY omeprazole 10 mg PO DAILY terazosin 5 mg PO BEDTIME 90 days HPI HPI s/p left Dx SIJ inj: Details: 58-year-old male who presents today to the office for status post diagnostic left sacroiliac joint injection The patient reports 80 % relief following the procedure. He reports significant relief from the injection. He is interested in getting a steroid injection. He reports feeling mild discomfort in the hip and legs while sleeping in a certain position. Past procedures: 02/05/24: Diagnostic Sacroiliac Joint Injection, left: 80 % relief. [facility] Medical History Flu-like symptoms Primary osteoarthritis of left knee GERD (gastroesophageal reflux disease) Tricompartment osteoarthritis of right knee RICKY on CPAP Surgical History Hx of colonoscopy History of thumb surgery S/P rhinoplasty Family History Father Family hx of colon cancer Mother Alive and well Social History Household Members: Spouse Housing: House Are you a primary director of primary care to a significant other at home: No Do you presently have visiting nurse or other home services: No Alcohol intake: current Alcohol intake frequency: holidays/special occasions only Patient Tobacco Use Status: Never used Tobacco e-Cigarette/Vaping Use: Never Used Second Hand Smoke Exposure: No service: No Current occupational status: employed 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 Alert and oriented. Mood and affect appropriate. Follows and participates in conversation appropriately. Respiratory effort is unlabored. Able to transition from sit to stand unassisted. Ambulates with bilaterally normal heel strike and toe off. Results Reviewed Results Reviewed: 11/27/23: CT LUMBAR SPINE WITHOUT CONTRAST FINDINGS: There are 5 lumbar-type vertebrae noted not articulating with a rib. The T12-L1 through L2-3 intervertebral levels are unremarkable. At L3-4, there is a mild annular disc bulge. No focal disc herniation is seen. There is mild central canal stenosis. The bilateral lateral recesses and neural foramina appear patent. The facets are unremarkable. Mild anterior endplate arthropathy is seen. At L4-5, there is mild posterior endplate arthropathy. A mild annular disc bulge is seen, and there is a small, broad-based right lateral focal disc herniation. There is mild central canal stenosis. There is narrowing of the right lateral recess, and the left lateral recess is patent. The right neural foramen is mildly narrowed, contributed to by mild facet arthropathy. The left neural foramen is patent. At L5-S1, there is mild disc space narrowing. No significant annular disc bulge or focal disc herniation is seen. There is no significant central canal stenosis. The bilateral lateral recesses and the neural foramina appear patent. The facets are unremarkable. 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 IMPRESSION: 1. At L3-4, there is a mild annular disc bulge, with secondary mild central canal stenosis. The bilateral lateral recesses and neural foramina appear patent. 2. At L4-5, there is a mild annular disc bulge, with superimposed small, broad-based right lateral focal disc herniation. There is mild central canal stenosis. There is right lateral recess narrowing, and there is mild narrowing of the right neural foramen, contributed to by facet arthropathy. These findings raise the question of right L4 and L5 nerve root impingement. Please correlate clinically. 10/01/23: XR LUMBOSACRAL SPINE FINDINGS: There are 6 nonrib-bearing lumbar-type vertebral bodies with lumbarization of S1. The last disc space will be referred to as S1-S2. Vertebral body heights are maintained. Dextroconvex curvature of the lumbar spine. There is some mild posterior placement of the distal aspect of the coccyx which can be seen in the setting of sacrococcygeal fracture/dislocation in the appropriate clinical setting if any history of trauma. Multilevel degenerative disc disease with loss of disc space height and facet arthropathy. Paravertebral soft tissues are unremarkable. IMPRESSION: * There is some mild posterior placement of the distal aspect of the coccyx which can be seen in the setting of sacrococcygeal fracture/dislocation in the appropriate clinical setting if any history of trauma. * Dextroconvex curvature of the lumbar spine. Multilevel degenerative disc disease with loss of disc space height and facet arthropathy. * There are 6 nonrib-bearing lumbar-type vertebral bodies with lumbarization of S1. The last disc space will be referred to as S1-S2. If intervention is being considered recommend total spine radiographs to ensure accurate numbering. . Assessment & Plan Assessment & Plan (1) Sacroiliac joint dysfunction of left side: Code(s): M53.3 - Sacrococcygeal disorders, not elsewhere classified Category: Medical Plan He is agreeable to proceed with therapeutic SI joint injection. We discussed lifestyle modifications in ADLs to help with the SI joint pain in concert with interventional management. Scribed for Dr. Rodrigues by Verena medical stenographer, on 02/11/2024. I, Dr. Rodrigues, have personally reviewed and agree with the information entered by the scribe. Coding Level of Care Code Procedure Only Diagnoses Sacroiliac joint dysfunction of left side M53.3
[2024-02-11 10:11] VITALS: BP 139/80; PULSE 95; RESP 15; O2SAT 95; BMI 35.2
== END 2024-02-11 10:26 | disposition home or self-care (01) ==
PROVIDERS: PCP Internal Medicine; Visit Provider Internal Medicine
DX: M53.3 Sacrococcygeal disorders, not elsewhere classified (principal)
CPT/HCPCS: 99213

== ENCOUNTER 2024-03-04 06:14 | Outpatient (REF) | payer BC, SELFPAY ==
--- NOTE | ~2024-03-04 | FL_ITS ---
EXAMINATION: FLUORO GUIDANCE IN TREATMENT ROOM CLINICAL INFORMATION: Sacrococcygeal disorders, not elsewhere classified. COMPARISON: None available. TECHNIQUE: Fluoroscopy supervised by: Dr. Aurelio Rodrigues. Fluoroscopy time: 0.1 minutes. Cumulative Dose: 1.24 mGy. DAP: 0.26396 mGy-m2 (milligray-meter squared). Images: 2. FINDINGS: A needle is seen overlying the left SI joint. FL/FL guidance in treatment room IMPRESSION: Fluoroscopy during procedure. Please see procedure report for additional information. Electronically signed by: Kerwin Harris MD 04/21/2024 01:12 PM [facility]
== END 2024-03-04 06:15 | disposition home or self-care (01) ==
LOC: CF 06:14
PROVIDERS: Visit Provider Internal Medicine
DX: M53.3 Sacrococcygeal disorders, not elsewhere classified (principal)
CPT/HCPCS: 27096; J2003; J2795; J3301

== ENCOUNTER 2024-03-04 12:24 | Outpatient (AMB) | payer BC, SELFPAY ==
[2024-03-04 12:30] VITALS: BP 144/87; PULSE 82; O2SAT 97
--- NOTE | 2024-03-04 12:30 | A.OFFVIS_ITS ---
Vital Signs 03/04/24 12:30 03/04/24 12:51 BP 144/87 H 139/82 Blood Pressure Location Lt brachial Lt brachial Position Sitting Sitting Pulse 82 78 Pulse Source Pulse Oximeter Pulse Oximeter Pulse Oximetry (%) 97 96 Oxygen Delivery Method Room Air Room Air Intake Visit Reasons: Left theraputic SIJ inj Allergies animal dander Allergy (Intermediate, Verified 02/27/24 14:17) Sneezing tree and shrub pollen Allergy (Intermediate, Verified 02/27/24 14:17) Itching dust Allergy (Unknown, Uncoded 02/11/24 10:12) Unknown hayfever Allergy (Unknown, Uncoded 02/11/24 10:12) Unknown HPI HPI Left theraputic SIJ inj: Details: Patient presents for scheduled procedure. Denies any recent cough, cold, infection, fever or other significant changes in medical history since last office visit. [facility] Medical History Flu-like symptoms Primary osteoarthritis of left knee GERD (gastroesophageal reflux disease) Tricompartment osteoarthritis of right knee RICKY on CPAP Surgical History Hx of colonoscopy History of thumb surgery S/P rhinoplasty Family History Father Family hx of colon cancer Mother Alive and well Social History Household Members: Spouse Housing: House Are you a primary customer care coordinator to a significant other at home: No Do you presently have visiting nurse or other home services: No Alcohol intake: current Alcohol intake frequency: holidays/special occasions only Patient Tobacco Use Status: Never used Tobacco e-Cigarette/Vaping Use: Never Used Second Hand Smoke Exposure: No service: No Current occupational status: employed 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 Immediately prior to starting the procedure, a time-out safety check was conducted. The patient's identification, procedure name, procedure site, and procedure laterality were confirmed with the patient. ? Patient was placed prone on the fluoroscopy table and the lumbosacral area was prepped using ChloraPrep and draped with sterile drapein standard fashion. The C-arm was rotated in a contralateral oblique fashion until the medial border of the iliac crest no longer foreshadowed the posterior sacroiliac joint line. The skin and subcutaneous tissue was anesthetized using 1 mL of 0.75% plain lidocaine with 1.5-inch 25-gauge needle in the middle region of the joint line.? A 3.5-inch 22-gauge spinal needle with small bend on the tip was slowly advanced towards the joint line, coaxial to the x-ray beam. Once bony content was obtained, the needle was easily slid into the intra-articular space.? Intra- articular needle position was confirmed using lateral fluoroscopy.? A total volume of 2.5mL of solution containing 40 mg Kenalog and rest 0.5% of ropivacaine was injected intra-articularly. The stylet was reinserted and needle was removed. The patient tolerated the procedure well. Patient denied any lower extremity weakness or numbness. Patient was observed for 30 min and was discharged after fulfilling the standard discharge criteria. Coding 83173 - Sacroiliac Procedure code (CPT) selection complete Assessment & Plan Assessment & Plan (1) Sacroiliac joint dysfunction of left side: Code(s): M53.3 - Sacrococcygeal disorders, not elsewhere classified Category: Medical Plan Patient is status post therapeutic left sacroiliac joint injection. Patient tolerated procedure well and was discharged home in stable condition with discharge instructions. All questions were answered. We will follow-up via telephone or in clinic to assess response to therapy. A follow-up appointment was made during today's visit. Orders: Orders FL guidance in treatment room Today M53.3 - Sacrococcygeal disorders, not elsewhere classified Coding Level of Care Code Procedure Only Diagnoses Sacroiliac joint dysfunction of left side M53.3 CPT Codes Coding - Joint 9: 26099 - Sacroiliac ([id number])
[2024-03-04 12:51] VITALS: BP 139/82; PULSE 78; O2SAT 96
== END 2024-03-04 12:51 | disposition home or self-care (01) ==
LOC: HO.PMCPRC 12:24
PROVIDERS: PCP Internal Medicine; Visit Provider Internal Medicine
DX: M53.3 Sacrococcygeal disorders, not elsewhere classified (principal)
CPT/HCPCS: 27096

== ENCOUNTER 2024-04-14 14:15 | Outpatient (AMB) | payer BC, SELFPAY ==
[2024-04-14 14:17] VITALS: BP 132/78; PULSE 60; TEMP 36.6; O2SAT 98; BMI 36.5
--- NOTE | 2024-04-14 14:17 | A.OFFPC_ITS ---
Vital Signs 04/14/24 14:17 Height 5 ft 3 in Weight 206 lb 2 oz BMI 36.5 BP 132/78 Blood Pressure Location Lt brachial Position Sitting Pulse 60 Pulse Source Pulse Oximeter Temp 98 F Temp Source Oral Pulse Oximetry (%) 98 Oxygen Delivery Method Room Air Intake Visit Reasons: Annual PE Allergies animal dander Allergy (Intermediate, Verified 04/14/24 14:18) Sneezing tree and shrub pollen Allergy (Intermediate, Verified 04/14/24 14:18) Itching dust Allergy (Unknown, Uncoded 02/11/24 10:12) Unknown hayfever Allergy (Unknown, Uncoded 02/11/24 10:12) Unknown Medication List - Last Reconciled 04/14/24 by Lolis Farias MD ascorbic acid (vitamin C) 100 mg PO DAILY azelastine 2 sprays intranasal BID 30 days epinephrine IM fexofenadine (Tracie Allergy) 60 mg PO DAILY PRN fluticasone propionate 50 mcg/actuation 1 spray intranasal DAILY montelukast (Singulair) 10 mg PO DAILY 90 days multivitamin (Daily Multi-Vitamin) 1 tab PO DAILY omeprazole 10 mg PO DAILY terazosin 5 mg PO BEDTIME 90 days Tobacco use date assessed: 04/14/24 Dental Screening Dental Screen Date: 04/14/24 Did you have a dental visit in the last 12 months?: Yes Did you have a dental problem in the last 6 months where you did not have access to dental care?: No Was dental information given to patient?: Patient has dentist HPI Annual PE HPI Details Patient is a 58-year-old gentleman came in today for physical examination Patient suffers from chronic sinusitis and allergies We did the complement levels which came back low C3-C4 Reports discussed with the patient I would recommend that he talk to him about the reports with his allergy immunology Patient says that nobody is picking up the phone in the office and he is feeling very frustrated He has been taking recurrent antibiotics and steroid courses for his recurrent sinusitis I would recommend to explore tertiary care center and see a specialist for a 2nd opinion Colonoscopy was 2 years ago next 1 will be in 3 years Labs done recently reviewed with the patient BMI is elevated need to lose weight Medication refills sent, but he is on azelton nasal spray Fexofenadine montelukast along with Flonase nasal spray [facility] Medical History Flu-like symptoms Primary osteoarthritis of left knee GERD (gastroesophageal reflux disease) Tricompartment osteoarthritis of right knee RICKY on CPAP Surgical History Hx of colonoscopy History of thumb surgery S/P rhinoplasty Family History Father Family hx of colon cancer Mother Alive and well Social History Household Members: Spouse Housing: House Are you a primary animal care worker to a significant other at home: No Do you presently have visiting nurse or other home services: No Alcohol intake: current Alcohol intake frequency: holidays/special occasions only Patient Tobacco Use Status: Never used Tobacco e-Cigarette/Vaping Use: Never Used Second Hand Smoke Exposure: No service: No Current occupational status: employed 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 1. Little interest or pleasure in doing things: not at all 2. Feeling down, depressed, or hopeless: not at all 3. Trouble falling or staying asleep, or sleeping too much: not at all 4. Feeling tired or having little energy: not at all 5. Poor appetite or overeating: not at all 6. Feeling bad about yourself - or that you are a failure or have let yourself or your family down: not at all 7. Trouble concentrating on things, such as reading the newspaper or watching television: not at all 8. Moving or speaking so slowly that other people could have noticed. Or the opposite - being so fidgety or restless that you have been moving around a lot more than usual: not at all 9. Thoughts that you would be better off or of hurting yourself in some way: not at all Total score: 0 Depression Screening Interpretation: Negative Depression Screening Done: Yes 27882 - PHQ-9 Billing: Yes Source: Developed by Drs. Vicente Post, Chantell Lopez, Christiano Linares and colleagues, with an educational ian from [employer]. Thrive Questionnaire Date Thrive assessed: 04/14/24 I am a: Patient What is your living situation today?: I have a steady place to live Within the past 12 months, did the food you bought not last and you didn't have the money to get more?: Never true Within the past 12 months, did you worry whether your food would run out before you got money to buy more?: Never true Do you have trouble paying for medicines?: No Do you have trouble getting transportation to medical appointments?: No Do you have trouble paying your heating and electricity bill?: No Do you have trouble taking care of your child, family member or friend?: No Do you have trouble with day-to-day activities such as bathing, preparing meals, shopping, managing finances, etc.?: No Are you currently unemployed and looking for a job?: No Are you interested in more education?: No Please select the resources that you would like help with: None Currently or been in a relationship where the following occur: No concerns reported THRIVE Score: 0 AUDIT C Alcohol Use Questionnaire (AUDIT-C) 1. How often do you have a drink containing alcohol?: Never 3. How often do you have six or more drinks on one occasion?: Never Total Score: 0 Score Reviewed/Action Taken: Yes PATRICE-7 AMB Questionnaire PATRICE-7 Date PATRICE - 7 assessed: 04/14/24 Feeling nervous, anxious, or on edge: 0 = Not at all Not being able to stop or control worryin = Not at all Worrying too much about different things: 0 = Not at all Trouble relaxin = Not at all Being so restless that it is hard to sit still: 0 = Not at all Becoming easily annoyed or irritable: 0 = Not at all Feeling afraid as if something awful might happen: 0 = Not at all Total PATRICE-7 score (0-4 normal; 5-9 mild; 10-14 moderate; 15-21 severe): 0 Source: Developed by Drs. Vicente Post, Chantell Lopez, Christiano Linares and colleagues, with an educational ian from [employer]. PATRICE-7 Assessment Billing PATRICE-7 Assessment Tool: PATRICE-7 Assessment 70155 Review of Systems Const Denies fever(s) and Denies headache(s) Eyes Denies blurry vision ENT Denies headache(s) and Denies odynophagia Card Denies chest pain at rest and Denies chest pain with activity Resp Denies cough and Denies hemoptysis GI Denies diarrhea, Denies odynophagia, Denies vomiting and Denies hematemesis Reports as per HPI Musc Denies abnormal gait Skin/Breast Reports as per HPI Neuro Denies Neuro-related abnormal movements, Denies Abnormal speech present, Denies abnormal gait, Denies headache(s) and Denies Sensory deficit (Neuro) Psych Denies mood swings and Denies paranoia Endo Reports as per HPI Fletcher/Lymph Reports as per HPI Aller/Immun Reports as per HPI Physical exam (Primary Care) Vital Signs: Last Vital Signs Temp 98 F 04/14/24 14:17 Pulse 60 04/14/24 14:17 BP 132/78 04/14/24 14:17 Pulse Ox 98 04/14/24 14:17 Oxygen Delivery Method Room Air 04/14/24 14:17 BMI result Body Mass Index 36.5 Tobacco/Smoking Status: Tobacco use Status Tobacco use date assessed 04/14/24 04/14/24 14:25 Patient Tobacco Use Status Never used Tobacco 04/14/24 14:25 e-Cigarette/Vaping Use Never Used 04/14/24 14:25 PHQ-9: PHQ-9 Score PHQ-9: Total score 0 04/14/24 14:25 Depression Screening Interpretation: Negative Thrive Assessment: Date of Thrive Assessment Date Thrive assessed 04/14/24 04/14/24 14:25 Currently or been in a relationship where the following occur: No concerns reported Const General: cooperative, comfortable and no acute distress Orientation/consciousness: patient oriented x3 HENMT Head: Yes normocephalic and Yes atraumatic Eyes General: appearance normal, both eyes and all related structures Pupils: Equal, round and reactive pupils present EOM: EOMs intact bilaterally Neck Neck: Yes supple and No lymphadenopathy Thyroid: Thyroid normal Lymphatic: no lymphadenopathy noted Resp Effort & Inspection: normal respiratory effort and able to speak in complete sentences Auscultation: clear to auscultation bilaterally Cardio Heart sounds: S1 normal heart sound present and S2 normal heart sound present GI Palpation (GI): Soft to palpation and nontender Auscultation: normal bowel sounds General: Yes no CVA tenderness Back/Spine/Pelvis Back: no CVA tenderness Skin General skin exam: elasticity normal and turgor normal Neuro General: patient oriented x3 and gait normal Cranial nerves: Yes Equal, round and reactive pupils present Speech: No Abnormal speech present Sensory Exam: No Sensory deficit (Neuro) Coordination: tandem gait normal and Romberg test negative Extrem General: Yes normal exam except as noted and No edema Coding Level of Care Code Est Pt Level 4 (97402) Est Pt Prev Care 40-64y(46655) Diagnoses Encounter for general adult medical examination with abnormal findings Z00. 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 Environmental allergies Z91.09 Class 1 obesity due to excess calories without serious comorbidity with body mass index (BMI) of 34.0 to 34.9 in adult E66.09; Z68.34 Obesity classification: adult class 1 (BMI 30 - 34.9) Serious obesity comorbidity presence: without serious comorbidity Body mass index: BMI 34.0-34.9 Recurrent sinusitis J32.9 Additional Codes PATRICE-7 Assessment Billing - PATRICE-7 Assessment Tool: PATRICE-7 Assessment 29175 ([id number]) PHQ-9 - 46894 - PHQ-9 Billing: Yes ([id number]) Assessment & Plan Assessment & Plan (1) Encounter for general adult medical examination with abnormal findings: Code(s): Z00.01 - Encounter for general adult medical examination with abnormal findings Category: Medical (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 - Defects in the complement system Category: Medical (3) Environmental allergies: Code(s): Z91.09 - Other allergy status, other than to drugs and biological substances Category: Medical (4) Obesity due to excess calories: Code(s): E66.09 - Other obesity due to excess calories Category: Medical Qualifiers: Obesity classification: adult class 1 (BMI 30 - 34.9) Serious obesity comorbidity presence: without serious comorbidity Body mass index: BMI 34.0- 34.9 Qualified Code(s): E66.09 - Other obesity due to excess calories; Z68.34 - Body mass index [BMI] 34.0-34.9, adult (5) Recurrent sinusitis: Code(s): J32.9 - Chronic sinusitis, unspecified Category: Medical Plan Patient is a 58-year-old gentleman came in today for physical examination Patient suffers from chronic sinusitis and allergies We did the complement levels which came back low C3-C4 Reports discussed with the patient I would recommend that he talk to him about the reports with his allergy immunology Patient says that nobody is picking up the phone in the office and he is feeling very frustrated He has been taking recurrent antibiotics and steroid courses for his recurrent sinusitis I would recommend to explore tertiary care center and see a specialist for a 2nd opinion Colonoscopy was 2 years ago next 1 will be in 3 years Labs done recently reviewed with the patient BMI is elevated need to lose weight Medication refills sent, but he is on azelton nasal spray Fexofenadine montelukast along with Flonase nasal spray I strongly recommend that patient get flu vaccine and COVID vaccine Which he will think tells me Medications: Refilled azelastine 2 sprays intranasal BID 30 days 30 mL 5RF montelukast (Singulair) 10 mg PO DAILY 90 days 90 tabs 1RF
== END 2024-04-14 14:59 | disposition home or self-care (01) ==
PROVIDERS: PCP Internal Medicine; Visit Provider Internal Medicine
DX: Z00.00 Encounter for general adult medical examination without abnormal findings (principal); D84.1 Defects in the complement system; E66.09 Other obesity due to excess calories; Z68.34 Body mass index [BMI] 34.0-34.9, adult; Z91.09 Other allergy status, other than to drugs and biological substances; J32.9 Chronic sinusitis, unspecified

== ENCOUNTER → 2024-04-14 14:15 | Outpatient (BNVA) | payer BC, SELFPAY | PROVIDERS: PCP Internal Medicine; Visit Provider Internal Medicine | DX: Z00.01 Encounter for general adult medical examination with abnormal findings (principal); D84.1 Defects in the complement system; E66.09 Other obesity due to excess calories; Z68.34 Body mass index [BMI] 34.0-34.9, adult; J32.9 Chronic sinusitis, unspecified; Z91.09 Other allergy status, other than to drugs and biological substances | CPT/HCPCS: 96127 ==

== ENCOUNTER 2024-04-26 11:53 | Outpatient (REF) | payer BC, SELFPAY | END 2024-04-26 11:54 | disposition home or self-care (01) | LOC: HO.LAB 11:53 | PROVIDERS: PCP Internal Medicine; Visit Provider Urology | DX: N40.1 Benign prostatic hyperplasia with lower urinary tract symptoms (principal); Z12.5 Encounter for screening for malignant neoplasm of prostate | CPT/HCPCS: 36415; 84153 ==

== ENCOUNTER → 2024-04-28 14:37 | Outpatient (BNVA) | payer BC, SELFPAY | PROVIDERS: PCP Internal Medicine; Visit Provider Urology ==

== ENCOUNTER 2025-02-15 10:21 | Outpatient (AMB) | payer BC, SELFPAY ==
--- NOTE | 2025-02-15 10:23 | MHC.OFFVIS ---
Vital Signs 02/15/25 10:29 Height 5 ft 3 in Weight 195 lb BMI 34.5 BP 148/74 H Blood Pressure Location Rt brachial Position Sitting Pulse 68 Pulse Source Pulse Oximeter Pulse Oximetry (%) 97 Oxygen Delivery Method Room Air Intake Visit Reasons: Colonoscopy Screening R/S from 11/12/24 Intake Note: Returning pt for recall colo screening. Last in 2019 w/ Dr. Lopez. Q5 years per direct FMHx. CC: Pt denies any current GI sx. Confirms he is still taking PPI. Also reports his brother is currently battling esophageal cancer. Curatorial Specialist Required: No Accompanied by: Self / Same As Patient Allergies animal dander Allergy (Intermediate, Verified 02/15/25 10:23) Sneezing tree and shrub pollen Allergy (Intermediate, Verified 02/15/25 10:23) Itching dust Allergy (Unknown, Uncoded 02/15/25 10:23) Unknown hayfever Allergy (Unknown, Uncoded 02/15/25 10:23) Unknown HPI HPI Colonoscopy Screening R/S from 11/12/24: Details: LAST VISIT: Treatment 1. Encounter for screening colonoscopy Start Golytely Solution Reconstituted, 236 GM, as directed, for Bowel prep, Orally, Once, 1 days, 1, Refills 0 Start Dulcolax Tablet Delayed Release, 5 MG, 2 tablets, Orally,, at night with a full glass of water, two nights before procedure, 1 days, 4, Refills 0 IMAGING: Colonoscopy Notes: Discussed in length the pre-op prep, diet & medications as well as what to expect prior, during and after procedure. Patient understands the directions and has no further questions or concerns at this time. Patient advised to call the office if questions/concerns arise. 2. Pre-op examination Notes: FHX of CRC/Polyps- His father has colon cancer- undergoing a partial colectomy now. This is his first colo screen. Patient understands all instructions for procedure. 3. Gastroesophageal reflux disease, esophagitis presence not specified Start Omeprazole Capsule Delayed Release, 20 MG, 1 capsule, Orally, Once a day, 30 day(s), 30, Refills 3 Notes: He used to takes TUMS PRN but now he tells me he has been taking it daily asked about risk vs benefit regarding daily medication managment, advised him of the importance of keeping the acid in his stomach and not coming up into his esophagus. He would like a daily medication and we discussed low dose Prilosec. Will see how he feels at f/u colo to see if his GERD is better controlled. COLONOSCOPY FINDINGS: Digital rectal exam revealed prostate to be slightly asymmetrical and enlarged with right lobe more prominent. No nodularity appreciated. Video colonoscope was introduced without difficulty. It was navigated into the rectosigmoid, sigmoid and up through the descending, transverse, ascending colon down into the cecum. Appendiceal orifice was seen. Ileocecal valve was seen. Prep was excellent. Slow rotational views on withdrawing the scope. Good submucosal detail: noted AVM in the ascending colon, nonbleeding, less than 5 mm in size. Anorectal verge was clear. PLAN AND CURRENT RECOMMENDATIONS: Repeat asymptomatic screening in this patient with family history is 5 years. TODAY'S VISIT He tolerated the procedure well. I explained him that there were no polyps in his colon looked quite good but he should have colonoscopies every 5 years given his family history to keep him cancer free. His only question was whether not we did a prostate exam during the colonoscopy. I explained to him that is not something that we do because the prostate is part of the urinary system and not part of the colon. These were usually performed by primary care providers as a screening for prostate cancer or he can be referred to urologist if he is having problems. TODAY'S VISIT: 02/15/2025 Patient is here today for follow-up discussed going her colonoscopy. Patient denies any any issues with anesthesia in the past. He has history of CRC in his family. Patient just learned in August that his brother was diagnosed with stage IV esophageal cancer. Patient is currently taking omeprazole 10 mg daily and reports that his symptoms are suppressed. Patient denies any nausea or vomiting. Patient denies any dyspepsia, dysphagia or odynophagia. Denies melena, hematochezia, unintentional weight loss or ribbon like stools. History of sleep apnea. Patient denies any dyspepsia, dysphagia or odynophagia. [facility] Medical History (Updated 02/15/25 @ 19:33 by Rosa M White, [facility]) Family history of esophageal cancer Flu-like symptoms Primary osteoarthritis of left knee GERD (gastroesophageal reflux disease) Tricompartment osteoarthritis of right knee RICKY on CPAP Surgical History Hx of colonoscopy History of thumb surgery S/P rhinoplasty Family History (Updated 02/15/25 @ 10:29 by PERLA Rae) Father Family hx of colon cancer Mother Alive and well Brother Esophageal cancer Social History Household Members: Spouse Housing: House Are you a primary respiratory care assistant to a significant other at home: No Do you presently have visiting nurse or other home services: No Alcohol intake: current Alcohol intake frequency: holidays/special occasions only Patient Tobacco Use Status: Never used Tobacco e-Cigarette/Vaping Use: Never Used Second Hand Smoke Exposure: No service: No Current occupational status: employed 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 Cognitive needs: No Hearing needs: No Vision needs: No Review of Systems Const Denies weight gain and Denies weight loss ENT Reports no additional complaints, Denies dysphagia and Denies odynophagia Card Reports no additional complaints Resp Reports no additional complaints GI Denies abdominal pain, Denies belching, Denies melena, Denies bloating, Denies change in bowel habits, Denies dysphagia, Denies excessive flatus, Denies dyspepsia, Denies heartburn, Denies diarrhea, Denies loose stools, Denies nausea, Denies odynophagia and Denies vomiting Reports no additional complaints Musc Reports no additional complaints Neuro Reports no additional complaints Psych Reports no additional complaints Endo Reports no additional complaints Physical Exam Vital Signs: Last Vital Signs Pulse 68 02/15/25 10:29 BP 148/74 H 02/15/25 10:29 Pulse Ox 97 02/15/25 10:29 Oxygen Delivery Method Room Air 02/15/25 10:29 BMI result Body Mass Index 34.5 Const General: healthy appearing, no acute distress and well developed Nutritional Appearance: well nourished Orientation/consciousness: patient oriented x3 Resp Effort & Inspection: normal respiratory effort, able to speak in complete sentences, no tracheal deviation and symmetric chest movement Auscultation: clear to auscultation bilaterally Cardio Jugular venous distension: no JVD Rate: regular rate Heart sounds: S1 normal heart sound present, S2 normal heart sound present, no gallops and no murmurs GI Inspection: Yes normal to inspection and No distended Palpation (GI): Soft to palpation, not firm, nontender and No hepatosplenomegaly present Auscultation: normal bowel sounds General: Yes no CVA tenderness Back/Spine/Pelvis Back: no CVA tenderness Skin General skin exam: elasticity normal, turgor normal and dry skin Neuro General: patient oriented x3 Psych Appearance: grossly normal Mental Status: mental status grossly normal Assessment & Plan Assessment & Plan (1) Dyspepsia: Code(s): R10.13 - Epigastric pain Category: Medical (2) Colon cancer screening: Code(s): Z12.11 - Encounter for screening for malignant neoplasm of colon Category: Medical (3) Family history of esophageal cancer: Code(s): Z80.0 - Family history of malignant neoplasm of digestive organs Category: Medical (4) GERD (gastroesophageal reflux disease): Code(s): K21.9 - Gastro-esophageal reflux disease without esophagitis Qualifiers: Esophagitis presence: esophagitis presence not specified Qualified Code(s): K21.9 - Gastro-esophageal reflux disease without esophagitis Plan Patient will be scheduled for upper endoscopy as well as colonoscopy. Message sent to surgical schedulers to book both procedure. Patient is currently taking omeprazole 10 mg and reports that his symptoms of acid reflux are suppressed. Admits that if he stops omeprazole he will get reflux. For patient reports that his brother was diagnosed in August with esophageal cancer stage 4. Currently is going for chemotherapy. Patient also has a family history of CRC. Patient denies any issues with anesthesia in the past. History of sleep apnea. Denies any cardiac or respiratory symptoms. What expect before during and after procedure discussed with patient. Stressed the importance of good bowel prep and clear liquid diet day before procedure. I will see patient after the procedure, sooner on as needed basis. Patient is agreeable to this plan and verbalizes understanding of instructions. He was given the opportunity to ask questions and all questions answered. Thank you for allowing me to participate in his care Orders: Referrals GI Procedure Notification K21.9 - Gastro-esophageal reflux disease without esophagitis, Z12.11 - Encounter for screening for malignant neoplasm of colon Medications: New polyethylene glycol 3350 (Miralax) As directed by gastroenterology department at [facility] 238 grams PO ONCE 238 grams 0RF Z12.11 - Encounter for screening for malignant neoplasm of colon bisacodyl (Dulcolax (bisacodyl)) take 4 tabs at noon the day before your colonoscopy 20 mg (4 x 5 mg) PO ONCE 4 tabs 0RF constipation 1 day Z12.11 - Encounter for screening for malignant neoplasm of colon Coding Level of Care Code New Pt Level 4 (89157) Diagnoses Dyspepsia R10.13 Colon cancer screening Z12.11 Family history of esophageal cancer Z80.0 Gastroesophageal reflux disease, unspecified whether esophagitis present K21.9 Esophagitis presence: esophagitis presence not specified Time Spent (min) 50 Comment 35 minutes spent with patient and additional 15 minutes spent reviewing his record
[2025-02-15 10:29] VITALS: BP 148/74; PULSE 68; O2SAT 97; BMI 34.5
--- OUTSIDE RECORDS SUMMARY | 2025-02-15 12:49 | XMS_ITS | Clinical Summary ---
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 10/08/2021 Active omeprazole (PRILOSEC) 20 mg TbEC Take 20 mg by mouth daily before breakfast. Active amoxicillin-cla vulanate (AUGMENTIN) 875-125 mg per tablet Take 1 tablet by mouth 2 (two) times a day. 11/27/2023 Active azelastine (ASTELIN) 137 mcg (0.1 %) nasal spray USE 1 TO 2 SPRAYS IN EACH NOSTRIL TWICE DAILY 10/27/2023 Active terazosin (HYTRIN) 5 MG capsule Take 5 mg by mouth nightly at bedtime. 09/22/2023 Active Active Problems No known active problems Social History Tobacco Use Types Packs/Day Years Used Date Smoking Tobacco: Never Assessed Education Answer Date Recorded Are you interested in more education? Not on sung e 07/20/2022 Are you concerned about learning? Not on file 07/20/2022 No 07/20/2022 No 07/20/2022 Digital Access Answer Date Recorded No 08/18/2022 No 08/18/2022 Reliable internet access at home? Not on file 08/18/2022 Device with a working camera? Not on file Sex and Gender Information Value Date Recorded Sex Assigned at Not on file Legal Sex Male 3:45 PM EDT Gender Identity Not on file Sexual Orientation Not on file Last Filed Vital Signs Vital Sign Reading Time Taken Comments Blood Pressure 135/89 12/16/2023 1:10 PM EDT Pulse 72 12/16/2023 1:10 PM EDT Temperature 36.6 C (97.9 F) 11/13/2021 10:02 AM EDT Respiratory Rate 16 11/13/2021 10:02 AM EDT Oxygen Saturation 98% 12/16/2023 1:10 PM EDT Inhaled Oxygen Concentration - - Weight 83 kg (183 lb) 12/16/2023 1:10 PM EDT Height 160 cm (5' 3 ) 12/16/2023 1:10 PM EDT Body Mass Index 32.42 12/16/2023 1:10 PM EDT Plan of Treatment Health Maintenance Due Date Last Done Comments Adult Td,Tdap Booster 1966 LIPID PANEL 1966 DEPRESSION SCREENING 1978 SMOKING Hx and SMOKELESS TOBACCO SCREENING 12/31/1979 HEPATITIS C SCREENING 1984 HIV ONE-TIME SCREENING (18-6 5 YEARS) 1984 SCREENING FOR DIABETES 2001 COLOGUARD 12/31/2011 COLONOSCOPY 12/31/2011 COLORECTAL CANCER SCREENING 12/31/2011 FIT TEST 12/31/2011 FOBT 12/31/2011 SIGMOIDOSCOPY 12/31/2011 VIRTUAL COLONOSCOPY 12/31/2011 PNEUMOCOCCAL VACCINES (50+ years) (1 of 1 - PCV) 2016 ZOSTER VACCINES (1 of 2) 2016 INFLUENZA VACCINE (#1) 2024 COVID-19 VACCINE (4 - 2024-2 6 season) 2024 04/02/2021, 08/02/2020, 07/15/2020 RSV VACCINE (1 - 1-dose 75+ series) 2041 HEPATITIS A VACCINES Aged Out No long er eligible based on patient's age to complete this topic HIB VACCINES Aged Out No longer eligi ble based on patient's age to complete this topic MENINGOCOCCAL VACCINES (ACWY) Aged Out No longer eligible based on patient's age to complete this topic MENINGOCOCCAL VACCINES (B) Aged Out N o longer eligible based on patient's age to complete this topic Medical Devices Not on file Insurance [place] [facility] HMO POS [facility] POS [facility] HMO POS [employer] [facility] HMO POS Care Teams Athletic Field Custodian Relationship Specialty Start Date End Date Pcp, Unknown PCP - General 10/31/21 Additional Source Comments The information contained in this document represents components of the legal health record. It is not the complete legal health record[facility]
== END 2025-02-15 11:34 | disposition home or self-care (01) ==
LOC: HO.HGI 10:22
PROVIDERS: PCP Internal Medicine; Visit Provider Nurse Practitioner Family
DX: Z01.818 Encounter for other preprocedural examination (principal); Z12.11 Encounter for screening for malignant neoplasm of colon; Z80.0 Family history of malignant neoplasm of digestive organs; R10.13 Epigastric pain; K21.9 Gastro-esophageal reflux disease without esophagitis
CPT/HCPCS: S0285